=== PATIENT | male | born 1945 | race Caucasian/White ===

== ENCOUNTER → 2019-09-23 11:19 | Outpatient (CLI) | payer MEDICARE, BC, SELFPAY ==
--- NOTE | 2019-09-23 | DI.MRI.S_ITS ---
PROCEDURE: MR LUMBAR SPINE WO CON INDICATIONS: Other symptoms and signs involving the musculoskel TECHNIQUE: Noncontrast sagittal T1 spin echo and T2 fast echo, sagittal STIR, axial T1 and T2 fast spin echo through the lumbar spine. In cases with scoliosis, additional coronal T2 fast spin echo may be performed. COMPARISON: CT, L-SPINE WITHOUT CONTRAST, 10/14/2008, 10:10. [facility], MR, L-SPINE WITHOUT CONTRAST, 04/03/2012, 10:31. FINDINGS: Image quality: Excellent. Alignment and Curvature: There is trace retrolisthesis of L1 on L2, L2 on L3 as well as trace anterolisthesis of L5 on S1. Bone Marrow: Marrow is of normal overall signal. Minimal reactive endplate changes are present at L1-L2, L2-3, L3-4, L4-5 and L5-S1. No acute vertebral body compression fractures. Spinal Cord: Conus medullaris terminates at the L1 level. Visualized cord demonstrates normal signal and size. Paraspinous Soft Tissues: No paravertebral masses. Discs: Mild/moderate multilevel disc desiccation is present most notable at L1-L2 and L5-S1. There is mild increased signal within the disc at L1-L2 and to a lesser degree L5-S1. L1-L2: Mild disc lobes with mild spinal stenosis. Severe right and moderate to severe left foraminal narrowing with facet and ligamentum flavum hypertrophy. No appreciable interval progression. L2-L3: Mild disc bulge, including left foraminal protrusion with mild spinal stenosis. Minimal left foraminal narrowing with facet and ligamentum flavum hypertrophy. Minimal epidural lipomatosis. Minimal interval progression. L3-L4: Mild disc bulge with mild spinal stenosis. Mild bilateral foraminal narrowing, slightly progressive on the left with facet and ligamentum flavum hypertrophy. L4-L5: Mild disc bulge including asymmetric left component with mild right lateral recess compromise. There is severe right and moderate left foraminal narrowing progressive on the right compared to prior exam. Facet and ligamentum flavum hypertrophy are present. L5-S1: Mild disc bulge with superimposed left posterior central protrusion, unchanged. There is severe left and moderate to severe right foraminal narrowing, somewhat progressive on the left compared to prior exam. Facet hypertrophy is present. Pars defect is present. IMPRESSION: 1. Multilevel degenerative changes there is interval progression as above. 2. Grade one anterolisthesis of L5 on S1 with pars defect. 3. Multilevel foraminal narrowing most severe at L1-2, L4-5 and L5-S1 secondary to facet arthropathy. 4. Multilevel spinal stenosis overall mild secondary to disc bulges. Dictated by: Kinjal Dawkins M.D. on 09/23/2019 at 15:13 Approved by: Kinjal Dawkins M.D. on 09/23/2019 at 15:31
== END ==
PROVIDERS: Family Provider Family Medicine Geriatric Medicine; PCP Family Medicine Geriatric Medicine; Referring Provider Family Medicine Geriatric Medicine; Visit Provider Psychiatry & Neurology Neurology
DX: R29.898 Other symptoms and signs involving the musculoskeletal system (principal); M47.816 Spondylosis without myelopathy or radiculopathy, lumbar region; M47.817 Spondylosis without myelopathy or radiculopathy, lumbosacral region; M43.17 Spondylolisthesis, lumbosacral region; M48.061 Spinal stenosis, lumbar region without neurogenic claudication; M48.07 Spinal stenosis, lumbosacral region; M51.26 Other intervertebral disc displacement, lumbar region; M51.27 Other intervertebral disc displacement, lumbosacral region
CPT/HCPCS: 72148

== ENCOUNTER → 2020-07-30 09:10 | Outpatient (CLI) | payer MEDICARE, BC, SELFPAY ==
[2020-07-30 11:10] LABS: COVID19 -Nasal RAPID Negative (Negative)
== END ==
PROVIDERS: Family Provider Family Medicine Geriatric Medicine; PCP Family Medicine Geriatric Medicine; Visit Provider Nurse Practitioner
DX: Z11.59 Encounter for screening for other viral diseases (principal)
CPT/HCPCS: 87635

== ENCOUNTER 2020-08-01 10:32 | Inpatient (IN) | payer MEDICARE, BC, SELFPAY ==
[2020-07-25 08:39] VITALS: BMI 27.2
[2020-08-01] VITALS (12 sets, daily range): BP systolic 100–166; BP diastolic 55–106; PULSE 57–87; RESP 12–18; TEMP 35.4–36.5; O2SAT 92–98; BMI 26.3
--- NOTE | 2020-08-01 | DI.RAD.S_ITS ---
PROCEDURE: XR PELVIS 1-2V INDICATIONS: POST OPERATIVE LEFT HIP TECHNIQUE: Single view(s) of the pelvis acquired. COMPARISON: [facility], CR, XR PELVIS WITH LATERAL HIP LEFT, 06/17/2020, 10:11. [facility], CR, XR HIP W PEL IF DONE LT 2V, 08/01/2020, 15:21. FINDINGS: Bones: No fracture. Left hip arthroplasty in expected postoperative alignment. Mild to moderate right hip joint degeneration. Severe degenerative sclerosis and spurring at the pubis symphysis. Soft tissues: Scattered vascular calcifications. IMPRESSION: Linear lucencies at the lesser trochanter suspicious for the possibility of nondisplaced periprosthetic fracture. Recommend follow-up radiographs in 10 days to assess for confirmatory healing sclerosis. Findings and recommendations were personally telephoned and discussed with Dr. Lizama covering for Dr. Ramirez at 1710 hours on 08/01/20. Elsewhere, expected postoperative alignment of left hip arthroplasty. Dictated by: Titus Espinal M.D. on 08/01/2020 at 17:00 Approved by: Titus Espinal M.D. on 08/01/2020 at 17:20
--- NOTE | 2020-08-01 06:00 | DI.RAD.S_ITS ---
PROCEDURE: XR HIP W PEL IF DONE LT 2V INDICATIONS: ANTERIOR LEFT HIP TECHNIQUE: 2 view(s) of the hip acquired. COMPARISON: [facility] [place], CR, XR PELVIS WITH LATERAL HIP LEFT, 06/17/2020, 10:11. FINDINGS: Bones: Patient is status post left hip arthroplasty, with hardware components in expected positions. The hip joint appears congruent. The visualized bony structures appear intact. Soft tissues: Overlying postoperative changes are noted. No suspicious soft tissue densities. IMPRESSION: Expected immediate postoperative appearance of left hip arthroplasty. Dictated by: Dieter Mg [facility] Interpreted: Ana Daigle MD on 08/01/2020 at 16:18 Approved by: Ana Daigle M.D. on 08/01/2020 at 17:10
[2020-08-01] MEDS: CELECOXIB 200 MG CAPSULE PO (12:28)
[2020-08-01] MEDS: PREGABALIN 75 MG CAPSULE PO (12:28)
[2020-08-01] MEDS: ACETAMINOPHEN 325 MG TABLET 975 MG PO (12:28)
--- NOTE | 2020-08-01 13:40 | PM.PREOP ---
Pre-operative Note COVID-19 COVID-19 status: Negative Result date/Date tested (Pos, Neg/Pending): 07/30/20 Interval Note History & Physical reviewed/Exam performed by Physician: Yes Changes to H&P: No H&P completed within 30 days and has changed as indicated here:: Plan for Left anterior PATY
[2020-08-01] MEDS: CEFAZOLIN 2 GM/100 ML FROZ.PIGGY IV ×2 (14:18→20:25)
--- NOTE | 2020-08-01 14:53 | SUR.OPER ---
Supine on padded [place] table with bilateral legs secured in padded positioning boots and suspended in positioning spars, operative leg in traction per surgeon. Head on one pillow. Arm on non-operative side secured on padded armboard <90 degrees abduction. Arm on operative side padded and resting across chest then secured with tape over sheet. Padded perineal post in place per surgeon.
[2020-08-01] MEDS: ROPIVACAINE 0.5% PF 5 MG/ML 20ML VIAL 60 ML INJ (14:56)
[2020-08-01] MEDS: KETOROLAC 30 MG/ML VIAL IV (14:57)
[2020-08-01] MEDS: MORPHINE 4 MG/ML INJ INJ (14:58)
[2020-08-01] MEDS: TRANEXAMIC ACID 1,000 MG VIAL 2000 MG INJ ×2 (14:59→15:43)
--- NOTE | 2020-08-01 16:03 | P.OP_ITS ---
Operative Date/Time/Diagnoses Date of procedure: 08/01/20 Time of procedure: 16:03 Pre-op diagnosis: left hip OA Post-op diagnosis: same Procedure & Clinicians Procedure: left anterior PATY Same procedure as scheduled: Yes Indications: left hip OA resistant to further conservative care Surgeon: Manjinder Ramirez Life Support Technician: Renate Antunez Anesthesia Type: General and Spinal Operative Notes Findings: Left hip osteoarthritis with [id number] articulation at the weight- bearing surface. Closure Type: primary Prosthetic devices, grafts, tissues, transplants, or devices: Mendoza [employer] Nephew R3 56 mm 2x 25 mm screw 56 mm x 36 mm neutral offset liner Nine high offset anthology stem 36+ 0 Biolox Delta ceramic head Estimated Blood Loss (mL): 100 Procedure in detail: Patient was met in the preoperative holding area where the site of surgery was marked by . Informed consent had been reviewed and signed in clinic however was also reviewed the preoperative holding area all last minute questions were answered. Patient was then brought back in the operating room he really see the spinal anesthetic was then placed supine on the [place] table bed. Bilateral feet were placed in [place] table boots after being well padded. He was induced under general anesthesia. The left hip was then prepped and draped in normal sterile fashion. A surgical time-out was performed verifying the site and side surgery well as the name of the patient. A 6 cm long incision based 2 cm distal and 2 cm lateral to the ASIS aiming towards the fibular head was made in the skin with a 10. Blade. Electrocautery was used to dissect down to the level of the tensor fascia. The tensor fascia was then split using new 10. Blade. An Allis clamp was placed on the medial leaflet of the tensor fascia and the tensor muscle itself was retracted laterally a Cobra was then placed over the superior neck of the femur. A Meyerding retractor was then placed on the lateral aspect of the rectus femoris and retract the muscle medially this gave us good exposure to the ascending branches of the femoral circumflex vessels which were coagulated using electrocautery. A 2nd Cobra retractor was then placed over the inferior neck of the femur and a bent Hohmann was placed over the anterior superior lip of the acetabulum giving good exposure to the capsule. Inverted T-shaped capsulotomy was then performed in the superior and inferior leaflets were then tagged with FiberWire suture. The was then released from the femoral neck and the Cobra retractor was then placed intracapsular this gave us good exposure of the femoral neck a reciprocating saw was then used to make a femoral neck cut height was based off our preoperative template films. The corkscrew was then used to remove the femoral head. At this point retractors were removed and soft tissues protector sleeve was placed retractors were then replaced to give us exposure to the acetabulum. Electrocautery was used to remove the pulp in our the Tangirnaq blade was used to remove the labrum. We began reaming with a size 48 Reamer and medialized to the base of the fossa. Fluoroscopy was then brought in and matched our standing AP pelvis films we then reamed the final several reamers underneath fluoroscopic guidance up to a size 52 which began to have good bite. We then reamed 1 more time with the 53 mm Reamer and selected a 3 hole 54 mm R3 cup. This was then impacted into place underneath fluoroscopic guidance and 2x 25 mm screws were then placed. A 54 mm x 36 mm neutral offset polyethylene liner was then placed and malleted flush with the rim of the cup. I then verify the all tabs were well seated in the acetabular cup. I then turned my attention to the femoral side. Femoral elevator hook was placed under the posterior aspect of the femur the leg was then externally rotated to 120? of external rotation the leg was extended to the floor and adducted. A Maldonado retractor was placed over the medial calcar and a bent Hohmann was placed over the superior aspect of the superior leaflet of the capsulotomy the capsule was then released off the inside shoulder of the greater trochanter the bent Hohmann was were removed and a large retractor was then placed over the greater trochanter. We had adequate exposure without needing to do any release of the short external rotators. A canal finer was then used followed by chili pepper broach followed by size 1 broach in up sizing by 1 until a size 9 broach was well seated. I then calcar planed off the size 9 broach we then trialed with a high offset 36+ 0. The hip was reduced hip was stable to maximal external rotation as well as external rotation to 90? and extension to the floor. Fluoroscopy was brought in to verify leg lengths and canal fill of the femoral stem. Leg lengths were equal and canal fill was appropriate with appropriate alignment of the stem. We then dislocated the hip removed the trial components and placed a size 9 high offset anthology femoral stem and a 36+ 0 Biolox head. This was then malleted onto the Lombardo taper. Hip was then reduced a final time. Local anesthetic was injected into the periarticular soft tissues including capsulotomy. The wound then had Betadine solution placed into it while final x-rays were taken. The Betadine solution was then irrigated away with copious normal saline the capsulotomy was then repaired using a running Ethibond suture followed by repair of the tensor fascia with a running locking 1. Vicryl followed by interrupted 2-0 Vicryl in the subcutaneous layer followed by 3-0 Stratafix in the subcuticular followed by Dermabond and Aquacel dressing. Complications: none Post-operative Condition: stable Disposition: PACU Plan for aftercare: 24 hours post-op abx, ASA 81mg BID (baseline dose for patient), WBAT LLE
[2020-08-01] MEDS: SODIUM CHLORIDE IRRIG SOLUTION 250 ML, POVIDONE-IODINE SPONGE STICKS 1 APPLIC IRR (16:11)
[2020-08-01] MEDS: OXYCODONE/ACETAMINOPHEN 5/325 TABLET 1 TAB PO (16:45)
[2020-08-01] MEDS: LACTATED RINGERS 1,000 ML 125 ML IV (18:12)
[2020-08-01 19:59] LABS: Add Manual Diff / Slide Review NO; Basophils Absolute Auto 0 /uL (0-100); Basophils Percent Auto 0.2 % (0-2); Eosinophils Absolute Auto 0 /uL (0-450); Eosinophils Percent Auto 0.2 % (2-4); Hematocrit 41.7 % (41-53); Hemoglobin 14.2 g/dL (13.5-17.5); Lymphocytes Absolute Auto 500 /uL (1100-4500); Lymphocytes Percent Auto 3.8 % (25-40); Mean Corpuscular HGB Conc 34.1 % (30-36); Mean Corpuscular Hemoglobin 32.5 PG (26-34); Mean Corpuscular Volume 95.2 fL (80-100); Monocytes Absolute Auto 300 /uL (0-900); Monocytes Percent Auto 2.2 % (3-14); Neutrophils Absolute Auto 12500 /uL (1500-7000); Neutrophils Percent Auto 93.6 % (50-75); Platelet Count 135 X10^3/uL (150-400); Red Blood Cell Count 4.38 X10^6/uL (4.5-5.9); Red Cell Distribution Width 13.4 % (11.6-14.8); White Blood Cell Count 13.3 X10^3/uL (4.5-11.0)
[2020-08-01] MEDS: ACETAMINOPHEN 325 MG TABLET 650 MG PO (20:25)
[2020-08-01] MEDS: ASPIRIN EC 81 MG TABLET PO (20:26)
[2020-08-01] MEDS: DOCUSATE 100 MG CAPSULE PO (20:26)
[2020-08-02] VITALS (7 sets, daily range): BP systolic 105–137; BP diastolic 63–87; PULSE 68–79; RESP 14–18; TEMP 36.1–37.1; O2SAT 94–100
--- NOTE | 2020-08-02 | DI.RAD.S_ITS ---
PROCEDURE: XR HIP W PEL IF DONE LT 2V INDICATIONS: post op fracture TECHNIQUE: AP pelvis with lateral view(s) of the left hip(s). COMPARISON: [facility], CR, XR PELVIS 1-2V, 08/01/2020, 16:33. [facility], CR, XR HIP W PEL IF DONE LT 2V, 08/01/2020, 15:21. FINDINGS: Bones: The previously described linear lucencies involving the lesser trochanter are not seen on additional views therefore probably projectional artifact on the prior study. Soft tissues: The visualized bowel gas pattern is normal. No suspicious soft tissue calcifications. IMPRESSION: No definite fracture in the region of the lesser trochanter as described above Dictated by: Titus Espinal M.D. on 08/02/2020 at 9:35 Approved by: Titus Espinal M.D. on 08/02/2020 at 9:37
--- NOTE | 2020-08-02 00:25 | PC.NURSE ---
Addendum entered by Darlene Sullivan R.N. 08/02/20 02:25: 0225 Pt unsuccessful in voiding without assistance. Straight-catheterization evacuated 820cc of urine. Pt tolerated procedure well. Addendum entered by Darlene Sullivan R.N. 08/02/20 01:30: 0130 Pt has not yet voided post surgically. He states he hasn't felt any sensations of needing to void. Bladder scan shows 943mL of urine within bladder. I have encouraged the patient to try voiding into the urinal, gently pressing on his bladder and intermittently coughing to try to relax the sphincter. If he is unsuccessful, I will use a straight-catheter. Note: Pt has h/o neuropathy. Original Note: 2310 Received safe patient hand-off. The patient is sitting up in bed, alert and oriented x4. He is on room air. He has a right AC PIV with LR infusing at 125mL/h. The bed alarm is on. No s/sx of distress. The patient appears slightly anxious and unsure of what tomorrow will bring as far as physical therapy and possibly needing another surgery. He stated the doctor told him he may have seen an additional fracture and was going to order another xray to be done; this has made the patient further anxious about getting out of bed. For now, he is using the urinal and will wait until doctor's orders and physical therapy visit tomorrow. He denies pain; neurovasculature is intact and strength is both legs is good.
[2020-08-02] MEDS: CEFAZOLIN 2 GM/100 ML FROZ.PIGGY IV (05:05)
--- NOTE | 2020-08-02 07:49 | P.PN_ITS ---
Subjective Subjective Date Patient Seen: 08/02/20 Time Patient Seen: 07:50 Interval history: Patient is POD#1 s/p anterior PATY with Dr. Ramirez. Pain has been controlled. He has not mobilized yet. Has been unable to void, was straight catheterized with 900cc output. No complaints. No chest pain or shortness of breath. Exam Vital Signs (past 8 hours): - 08/02/20 03:51 Temperature 97.0 F L Pulse Rate 68 Respiratory Rate 18 Blood Pressure 130/86 Pulse Oximetry 96 Oxygen Delivery Method Room Air Oxygen Flow Rate 0 Narrative Exam Narrative: 75 year old male resting in bed, alert and oriented in no acute distress. Aquacel dressing over left hip is CDI. Patient able to perform straight leg raise. Calves are soft, nontender. Palpable pedal pulse. Objective Labs Result Diagrams: 08/02/20 05:20 Labs: Laboratory Results - last 24 hr 08/01/20 08/02/20 19:48 05:20 WBC 13.3 H RBC 4.38 L Hgb 14.2 13.0 L Hct 41.7 38.0 L MCV 95.2 MCH 32.5 MCHC 34.1 RDW 13.4 Plt Count 135 L Neut % (Auto) 93.6 H Lymph % (Auto) 3.8 L [place] % (Auto) 2.2 L Eos % (Auto) 0.2 L Baso % (Auto) 0.2 Neut # (Auto) 91021 H Lymph # (Auto) 500 L [place] # (Auto) 300 Eos # (Auto) 0 Baso # (Auto) 0 PFSH Medical History Asthma Borderline diabetes Depression Glaucoma HLD (hyperlipidemia) HTN (hypertension) Hx of angiography (~2002) Impaired hearing Peripheral neuropathy Skin cancer Surgical History History of arthroplasty of right knee (01/23/11) History of arthroscopy of both knees History of colonoscopy History of surgery History of surgery History of surgery Hx of bilateral cataract extraction Hx of hemorrhoidectomy S/P CABG x 4 (~2002) Social History household members: children Smoking Status: Former smoker alcohol intake: current Assessment & Plan Assessment & Plan narrative: -Patient is POD#1 s/p anterior PATY. Postoperative films reviewed by Dr. Ramirez are suspicious for periprosthetic fracture. Will repeat xray today to further evaluate this. Patient will be TTWB on the left pending xray. May return to the OR later today for revision dependent on what new films show. NPO after breakfast. May still work with PT. -Postoperative urinary retention. Will continue protocol including bladder scans and straight catheterization if needed. Flomax added. Quality VTE Deep Vein Thrombosis/Pulmonary Embolism Present on Admission: No
[2020-08-02] MEDS: TAMSULOSIN 0.4 MG CAPSULE PO (08:32)
[2020-08-02] MEDS: LOSARTAN 50 MG TABLET PO (08:32)
[2020-08-02] MEDS: DOCUSATE 100 MG CAPSULE PO ×2 (08:33→19:28)
[2020-08-02] MEDS: LACTATED RINGERS 1,000 ML 125 ML IV (08:37)
--- NOTE | 2020-08-02 09:50 | DI.CT.S_ITS ---
PROCEDURE: CT PEL WO CON INDICATIONS: questionable periprosthetic hip fracture TECHNIQUE: Noncontrast 3 mm axial sections acquired through the bony pelvis, with coronal and sagittal reformatting. COMPARISON: [facility], CR, XR PELVIS 1-2V, 08/01/2020, 16:33. [facility], CR, XR HIP W PEL IF DONE LT 2V, 08/02/2020, 9:18. FINDINGS: Image quality: Excellent. Bones: Patient is status post left total hip arthroplasty. Alignment of left hip prosthesis is anatomic. No evidence of hardware loosening or failure. There is no fracture or dislocation seen in bony pelvis and bilateral hips. Specifically no fracture in the region of lesser trochanter is seen. No suspicious intraosseous lesion. Moderate right hip joint osteoarthritic changes are noted. No evidence of avascular necrosis of femoral head. Osteoarthritic changes also seen in bilateral sacroiliac joints and symphysis pubis. Soft tissues: Post surgical changes are noted in left analy pelvic soft tissue with subcutaneous emphysema and air deep in the anterior and posterior upper thigh muscle groups. No discrete drainable fluid collection is seen. Vascular calcifications are noted in bilateral upper thigh. There is no pelvic free fluid or free air. No abnormal bowel wall thickening. IMPRESSION: 1. Post left total hip arthroplasty changes with anatomic left hip alignment. No hardware loosening or failure. No acute left hip fracture or dislocation. Previously noted radiolucency projecting in the region of lesser trochanter likely represent summation artifact from nutrient vessel in this region and overlying subcutaneous emphysema. 2. Osteoarthritic changes throughout bony pelvis. No evidence of avascular necrosis of right femoral head. Dictated by: Prem Davison M.D. on 08/02/2020 at 11:00 Approved by: Prem Davison M.D. on 08/02/2020 at 11:07
--- NOTE | 2020-08-02 11:35 | PT.IIE ---
Addendum entered and electronically signed by Kathryn Pham PT 08/02/20 13:23: X-ray and CT are negative for fracture which is confirmed after initial evaluation. Pt is now cleared for WBAT LLE. Original Note: Current Diagnoses Unilateral primary osteoarthritis, left hip (08/01/20) Surgery Performed Operation Date: 08/01/20 14:00 Actual Procedures p Total Hip Arthroplasty/Anterior Approach(Left) - Manjinder Ramirez MD Surgical History (Last Reviewed 08/02/20 @ 07:52 by Renate Antunez PA-C) History of arthroplasty of right knee (01/23/11) History of arthroscopy of both knees History of colonoscopy History of surgery History of surgery History of surgery Hx of bilateral cataract extraction Hx of hemorrhoidectomy S/P CABG x 4 (~2002) Medical History (Last Reviewed 08/02/20 @ 07:52 by Renate Antunez PA-C) Asthma Borderline diabetes Depression Glaucoma HLD (hyperlipidemia) HTN (hypertension) Hx of angiography (~2002) Impaired hearing Peripheral neuropathy Skin cancer Physical Therapy Inpatient Evaluation/Re-Eval M1 PT/OT-IP Prior Functional Status Start: 08/02/20 08:40 Freq: NEEDED Status: Active Protocol: Document 08/02/20 11:30 AW (Rec: 08/02/20 12:19 AW [id number]) Medical Review Prior Functional Status Medical History Reviewed Yes Communication WNL. Pt is an effective verbal communicator. Mobility and Gait Pt is an independent ambulator without assistive device. Before surgery, he could walk a mile but with increased pain afterward. He has bilateral knee pain which was increased following a R Achilles injury in October of this year. Pt is a high fall risk and reports multiple falls in the past one year. Activities of Daily Living and IADL's Independent with all I/ADL's. 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 Prior Functional Level (Other details) Pt has peripheral neuropathy in all extremities which affects strength and sensation . Sensation is more disturbed on the right than the left LE. Social History Household Members children Living Arrangements House Number of Floors (Floors) Two Floors Number of Stairs To Enter/Railing? 3 VIET with wide bilateral rails Home Environment Standard Height Toilet,Walk in Shower Home Equipment Front Wheel Walker,Straight Cane,Crutches,Shower Seat without Backrest,Long Handled Sponge,Long Handled Shoe Horn, Process Laboratory Specialist,Sock Aid Employment Status Retired Additional Social History Comment Pt lives on [address] with his 40 yo son. His son has Asperger's but is able and available to assist without physical limitation. Pt has a friend on [address] who will also be available to assist and will come to pick him up at discharge. M2 PT-IP Current Condition Start: 08/02/20 08:40 Freq: NEEDED Status: Active Protocol: Document 08/02/20 11:30 DE (Rec: 08/02/20 13:20 DE [id number]) Physical Therapy Current Condition Current Condition Evaluation Date 08/02/20 Treatment Diagnosis L PAYT anterior; Difficulty in walking Onset Date 08/01/20 Precautions Anterior Hip Precautions No Hip Extension,No Hip External Rotation Weight Bearing Status Weight Bearing Status Touch Down Weight Bearing M3 PT-IP Subjective Start: 08/02/20 08:40 Freq: NEEDED Status: Active Protocol: Document 08/02/20 11:30 DE (Rec: 08/02/20 13:20 DE [id number]) Subjective Physical Therapy Visit Type Type Initial Evaluation Visit Start Time 11:02 Visit Stop Time 11:25 Total Visit Minutes 23 Notes SPT Arnoldo led session under direct supervision of PT Kathryn. Number of PROSPECTING DRILLER HELPER Visits 0 Physical Therapy Visit Comments Patient Comments Pt is agreeable to do PT. M4 PT-IP Mobility and Gait Start: 08/02/20 08:40 Freq: NEEDED Status: Active Protocol: Document 08/02/20 11:30 DE (Rec: 08/02/20 13:20 DE [id number]) PT-Bed Mobility Assessment Supine to Sit Supine to Sit Standby Assistance PT-Transfer Assessment Sit to and From Stand Sit to and from Stand Contact Guard Assistance,Use of Upper Extremities Equipment Transfer Assistive Device Gait Belt,Front Wheeled Walker Orthotic/Prosthetic Devices or Brace: No Transfers Transfer Destination Chair Transfer Technique Amb with FWW Transfer Ability Level of Assist Contact Guard Assistance,Use of Upper Extremities Comments Mobility Comments Pt was inclined in bed upon arrival. Pt completed supine to sit at R EOB from flat bed with SBA. Reviewed LLE TTWB precaution and pt demonstrated understanding. Pt performed sit to stand with FWW CGA. Pt denied any dizziness or lightheadness. Pt amb ~2 ft forward and pivoted to sit down in the chair that was on the R side with FWW CGA. Pt was able to maintain LLE TTWB throughout the mobilization. Pt reclined comfortably in the chair. Call light placed within reach. Gait Assessment Gait Gait Assistance Required: Contact Guard Assist Distance (Feet) 2 Able to Maintain Weight Bearing Status Yes During Gait Assistive Devices Assistive Device Gait Belt,Front Wheeled Walker Orthotic/Prosthetic Devices or Brace: No Gait Deviations General Gait Pattern Decreased Stride Length, Decreased Feet Clearance, Flexed Trunk,Step-to Gait Factors Limiting Gait Function Factors Limiting Gait Function Decreased Activity Tolerance, Decreased Sensation,Decreased Strength,Limited Range of Motion,Poor Balance Comments Gait Comments See mobility comments. Stair Climbing Assessment Comments Stair Climbing Comments Not assessed. PT-Balance Assessment Sitting Balance and Reactions Static Sitting Balance Ability Normal Dynamic Sitting Balance Ability Normal Standing Balance and Reactions Static Standing Balance Ability Good Dynamic Standing Balance Ability Good M5 PT-IP Objective Assessments Start: 08/02/20 08:40 Freq: NEEDED Status: Active Protocol: Document 08/02/20 11:30 DE (Rec: 08/02/20 13:20 DE [id number]) Orientation Orientation/Cognition Level of Alertness Alert Orientation Name,Age,Birthday,Month,Date, Year,Day of Week,Place, Situation Language Function Ability No Deficits Noted Safety Awareness Understands Safety Issues Memory Description No Deficits Noted Gross Range of Motion Lower Extremity ROM Assessment Left Impaired Strength Lower Extremity Strength Assessment Left Impaired Coordination Assessment Gross Coordination Gross Coordination WNL Sensation Assessment Sensation Gross Sensation Right LE Impaired,Left LE Impaired Light Touch Impaired Sensation Description Numbness Comments Sensation Comments Pt has peripheral neuropathy affecting BLE (R>L) Muscle Tone Muscle Tone WNL Yes M6 PT-IP Treatment Start: 08/02/20 08:40 Freq: NEEDED Status: Active Protocol: Document 08/02/20 11:30 DE (Rec: 08/02/20 13:20 DE [id number]) Physical Therapy Treatment Education Education Provided Weight Bearing Status,Post-Op Packet,Safety Other Treatments Other Treatment Performed Provided education on WB status, safety, and role of PT . M7 PT-IP Assessment and Plan Start: 08/02/20 08:40 Freq: NEEDED Status: Active Protocol: Document 08/02/20 11:30 DE (Rec: 08/02/20 13:20 DE [id number]) PT Summary Assessment and Plan Potential Rehabilitation Potential Excellent Status of Condition at Evaluation Evolving Summary Impairments Pain,ROM,Strength,Balance,Bed Mobility,Transfers,Gait, Activity Tolerance Assessment Summary Isac is a 75 yo female POD1 s /p L PATY with hx of multiple B knee arthroscopies, L TKA, and peripheral neuropathy in BLE. At baseline, pt is IND for all mobility and amb without AD. Pt is able to amb ~1 mile with increased pain after. Pt is IND for all I/ ADLs at baseline. On evaluation, pt requires CGA- SBA for supine to sit, sit <> stand, and amb. Pt has TTWB status d/t possible fracture around prosthetics, currently waiting for the x-ray and CT results. PT will continue to assess progress and refine d/c recommendation depending on the imaging results and WB status. Pt will need to perform 3 steps up and down with unilateral railing before d/c. PT anticipates pt will be safe to d/c home with assistance if imaging is negative and WB status is WBAT . Pt will also benefit from outpatient PT to improve hip ROM and strength. Goals Bed Mobility Goal Independent Transfer Goal Independent,Front Wheeled Walker Gait Goal Independent,Front Wheel Walker Gait Distance 200 Other Goals Pt will perform 3 steps up and down with unilateral railing SBA. Days to Meet Goals 3 Frequency of Treatment Frequency Of Treatment Twice a Day Treatment Plan Physical Therapy Treatment Plan Bed Mobility Training,Transfer Training,Gait Training, Therapeutic Exercise,Balance Retraining,Post Op Education, Discharge Planning,Hot or Cold Pack,Neuromuscular Re-ed Recommendations To Nursing Amount of Assist Needed 1 Person Assist Discharge Recommendations PT Discharge Recommendations Home with Assistance, Outpatient PT Transportation Needs at Discharge Private Vehicle Treatment was provided by Arnoldo Mayer, DENI and supervised by Kathryn Pham, PT. I personally reviewed this note and agree with its contents.
--- NOTE | 2020-08-02 12:08 | CM.DANOTE ---
DCP: Case received, EMR reviewed and met with patient. Introduced self and role. Was able to obtain information from patient regarding his baseline activity status and living situation prior to hospitalization. DCP assessment completed with information currently available. Patient is a 64 year old male who admitted yesterday morning to the care of the surgical team. PCP: Dr. Thorne. Payer: confirmed: [employer]. Patient came to the hospital via private vehicle for a surgical procedure. He had right total hip arthroplasty. Patien has had isory of osteoartritis, and chronic hip pain. Met with patient in his room. He is pleasant, alert and oriented., He resides on [address]. He is independent at baseline, although he stated that he only drives for short distances, due to [place] vision[place]. He resides in [place] with his son, who has Ashburger's. He stated, he son can assist him at home, as long as he is in his routine. He [place] P: DCP to continue to follow. Patient will be working with P.T. He should be able to go home when he is medically stable. Galina Dyer RN/Performance Test Consultant
--- NOTE | 2020-08-02 12:12 | PC.NURSE ---
Addendum entered by Cari Fuentes R.N. 08/02/20 14:32: PATIENT VOIDED 400CC'S W/ PVR 450 CC'S, WAITED 1/2 HR THEN PATIENT VOIDED 650 CC'S. Original Note: SHIFT NOTE: PATIENT NPO AFTER BREAKFAST, CONCERN FOR POSS. FX PER POST-OP XRAY PATIENT HAD REPEAT XRAY THIS AM FOLLOWED BY CT SCAN TO CONFIRM ABSENCE OF FX. BOTH NEGATIVE. PATIENT CONTINUES WITH URINARY RETENTION, BLADDER SCAN THIS AM >500 CC'S. STOOD PATIENT AT BEDSIDE W/ TTWB TO LLE, UNABLE TO VOID, DENIES SENSATION TO VOID. ASSISTED BACK TO BED. STRAIGHT CATH FOR 825 CC'S OF CLEAR YELLOW URINE. MC ESCAMILLA ADDED FLOMAX WHICH WAS GIVEN THIS AM. IF RETENTION CONTINUES MAY PLACE DEJESUS OVERNIGHT AND DC AT 0600 TOMORROW MORNING.(PER ORTHO PA) REGULAR DIET RESUMED FOR LUNCH, PATIENT IS NOW WT BEAR TOLERATED TO LLE. PATIENT HAS DENIED PAIN TO LLE STATING HE STILL HAS NUMBNESS, BUT HAS CHRONIC NEUROPATHY AT BASELINE TO ALL 4 EXTREMITIES. OTHERWISE CMS INTACT, CAN FEEL PRESSURE. BL FEET COOL W/ FAINT PALPABLE PEDAL PULSES AND SOCKS APPLIED. CAP REFILL >2 SECONDS. EQUAL STRENGTH, STRONG DORSI FLEX AND PLANTAR FLEX CAN LIFT LEGS OFF OF BED. NOW SITTING IN RECLINER AFTER ASSIST FROM PHYSICAL THERAPY FOR LUNCH.
--- NOTE | 2020-08-02 14:46 | PT.IPTN ---
Current Diagnoses Unilateral primary osteoarthritis, left hip (08/01/20) Surgery Performed Operation Date: 08/01/20 14:00 Actual Procedures p Total Hip Arthroplasty/Anterior Approach(Left) - Manjinder Ramirez MD Physical Therapy Treatment Note M2 PT-IP Current Condition Start: 08/02/20 08:40 Freq: NEEDED Status: Active Protocol: Document 08/02/20 11:30 DE (Rec: 08/02/20 13:20 DE [id number]) Physical Therapy Current Condition Current Condition Evaluation Date 08/02/20 Treatment Diagnosis L PATY anterior; Difficulty in walking Onset Date 08/01/20 Precautions Anterior Hip Precautions No Hip Extension,No Hip External Rotation Weight Bearing Status Weight Bearing Status Touch Down Weight Bearing M3 PT-IP Subjective Start: 08/02/20 08:40 Freq: NEEDED Status: Active Protocol: Document 08/02/20 14:09 CLB (Rec: 08/02/20 15:57 CLB [id number]) Subjective Physical Therapy Visit Type Type Treatment Note Visit Start Time 14:09 Visit Stop Time 14:46 Total Visit Minutes 37 Number of DIRECTOR ADULT Visits 1 Physical Therapy Visit Comments Patient Comments Pt is agreeable to do PT. M4 PT-IP Mobility and Gait Start: 08/02/20 08:40 Freq: NEEDED Status: Active Protocol: Document 08/02/20 14:09 CLB (Rec: 08/02/20 15:57 CLB [id number]) PT-Bed Mobility Assessment Supine to Sit Supine to Sit Standby Assistance Sit to Supine Sit to Supine Standby Assistance PT-Transfer Assessment Sit to and From Stand Sit to and from Stand Standby Assistance,Use of Upper Extremities Equipment Transfer Assistive Device Gait Belt,Front Wheeled Walker Orthotic/Prosthetic Devices or Brace: No Transfers Transfer Destination Bed Transfer Technique Amb with FWW Transfer Ability Level of Assist Standby Assistance,Use of Upper Extremities Comments Mobility Comments Pt performed HS, QS,GS and AP in bed. Educated pt on Anterior hip precautions and WB status. Pt required SBA for [id number] with GB and FWW. Pt ambulated to therapy stairs and after education for proper sequencing pt climbed three steps with right rail SBA. Pt ambulated back to room requiring SBA for stand-sit- supine. Left pt in bed with alarm on, call light and all other needs within reach. Informed AIRPORT CONTROL OPERATOR of pt progress with mobility. Gait Assessment Gait Gait Assistance Required: Standby Assistance Distance (Feet) 120 Able to Maintain Weight Bearing Status Yes During Gait Assistive Devices Assistive Device Gait Belt,Front Wheeled Walker Orthotic/Prosthetic Devices or Brace: No Gait Deviations General Gait Pattern Decreased Stride Length, Decreased Feet Clearance, Flexed Trunk,Step-to Gait Factors Limiting Gait Function Factors Limiting Gait Function Decreased Activity Tolerance, Decreased Sensation,Decreased Strength,Limited Range of Motion,Poor Balance Comments Gait Comments Pt uses small step through gait and at time brings knee up as if marching. Pt able to bear weight w/o increase in pain but reported a warming sensation of left upper thigh. Stair Climbing Assessment Evaluation Level of Assist On Stairs Standby Assistance Devices Stair Climbing Assistive Devices Right Railing Technique/Endurance Stair Climbing Direction Ascend and Descend Stair Climbing Technique Step to Step Number of Steps Climbed 3 Stair Climbing Set # Repetitions (reps) 1 M5 PT-IP Objective Assessments Start: 08/02/20 08:40 Freq: NEEDED Status: Active Protocol: Document 08/02/20 11:30 DE (Rec: 08/02/20 13:20 DE [id number]) Orientation Orientation/Cognition Level of Alertness Alert Orientation Name,Age,Birthday,Month,Date, Year,Day of Week,Place, Situation Language Function Ability No Deficits Noted Safety Awareness Understands Safety Issues Memory Description No Deficits Noted Gross Range of Motion Lower Extremity ROM Assessment Left Impaired Strength Lower Extremity Strength Assessment Left Impaired Coordination Assessment Gross Coordination Gross Coordination WNL Sensation Assessment Sensation Gross Sensation Right LE Impaired,Left LE Impaired Light Touch Impaired Sensation Description Numbness Comments Sensation Comments Pt has periheral neuropathy affecting BLE (R>L) Muscle Tone Muscle Tone WNL Yes M6 PT-IP Treatment Start: 08/02/20 08:40 Freq: NEEDED Status: Active Protocol: Document 08/02/20 14:09 CLB (Rec: 08/02/20 15:57 CLB [id number]) Physical Therapy Treatment Exercises Exercises Ankle Pumps,Gluteal Sets,Quad Sets,Heel Slides Education Education Provided Precautions,Weight Bearing Status,Safety M7 PT-IP Assessment and Plan Start: 08/02/20 08:40 Freq: NEEDED Status: Active Protocol: Document 08/02/20 14:09 CLB (Rec: 08/02/20 15:57 CLB [id number]) PT Summary Assessment and Plan Potential Rehabilitation Potential Excellent Status of Condition at Evaluation Evolving Summary Impairments Pain,ROM,Strength,Balance,Bed Mobility,Transfers,Gait, Activity Tolerance Assessment Summary Pt is able to perform all therapeutic exercises, perform bed mobility and sit<>stand SBA. Pt confused about hip precautions as his OP PT gave him posterior hip precautions to follow. Pt was educated on WB status and anterior hip precautions and pt was able to follow precautions during tx. Pt able to climb three steps with right rail SBA. Pt will have friend who is an EMT pick him up to take him home. His son is home to assist with minor needs. Pt would benefit from further stair training to confirm carry over. Goals Bed Mobility Goal Independent Transfer Goal Independent,Front Wheeled Walker Gait Goal Independent,Front Wheel Walker Gait Distance 200 Other Goals Pt will perform 3 steps up and down with unilateral railing SBA. Days to Meet Goals 3 Frequency of Treatment Frequency Of Treatment Twice a Day Treatment Plan Physical Therapy Treatment Plan Bed Mobility Training,Transfer Training,Gait Training, Therapeutic Exercise,Balance Retraining,Post Op Education, Discharge Planning,Hot or Cold Pack,Neuromuscular Re-ed Other Recommendations and Next Treatment review hip precautions, ther Focus ex, ambulation and stair training. Recommendations To Nursing Amount of Assist Needed 1 Person Assist Discharge Recommendations PT Discharge Recommendations Home with Assistance, Outpatient PT Transportation Needs at Discharge Private Vehicle
[2020-08-02] MEDS: OXYCODONE IR 5 MG TABLET PO ×2 (19:28→23:14)
[2020-08-02] MEDS: ACETAMINOPHEN 325 MG TABLET 650 MG PO (19:28)
[2020-08-02] MEDS: SODIUM CHLORIDE 0.9% FLUSH 10 ML IV (19:29)
[2020-08-02] MEDS: TRAVOPROST OPHTH DROPS 1 DROPS EYE-BOTH (19:31)
[2020-08-02] MEDS: ASPIRIN EC 81 MG TABLET PO (19:45)
[2020-08-03 04:12] VITALS: BP 139/74; PULSE 63; RESP 16; TEMP 35.9; O2SAT 95
[2020-08-03] MEDS: OXYCODONE IR 5 MG TABLET PO ×3 (04:37→13:02)
[2020-08-03 07:00] VITALS: BP 140/81; PULSE 65; RESP 16; TEMP 36.1; O2SAT 96
--- NOTE | 2020-08-03 08:15 | PM.DS.1 ---
History of Present Illness History of Present Illness Date Patient Seen: 08/03/20 Time Patient Seen: 08:15 Chief complaint: OPB Discharge Providers Provider Date of admission: 08/01/20 10:32 Discharge Date: 08/03/20 Primary care physician: Mikey Fonseca MD Consults: 08/01/20 06:00 Consult to Anesthesiology Routine Comment: Consulting Provider: Anesthesiologist Reason for consultation: Regional block for post operative pain control 08/01/20 17:49 Consult to Discharge Planning Routine Comment: Consult to Physical Therapy Evaluate & Treat Comment: Physician Instructions: post op PATY protocol Consult to Respiratory Therapy Evaluate & Treat Comment: Physician Instructions: Evaluate and treat Discharge provider: Kalie Macedo PA-C Summary Hospital Course Discharge Diagnosis: s/p left PATY Acute urinary retention Hospital Course: Peter admitted for a left PATY with Dr. Ramirez. Patient had adequate pain control throughout his stay. There was concern after reviewing x-rays in the recovery room that he had a periprosthetic fracture. New films were obtained the next day which showed no fracture. To rule out fracture CT was obtained and there was no fracture seen on CT either. Patient has been mobilizing well with physical therapy. He initially had difficulty voiding with acute urinary retention postop day 1 but was able to void after starting Flomax. He will continue Flomax for 2 weeks and follow-up with his primary care regarding this. At time of discharge he is eating and voiding without difficulty or assistance. Exam Vital Signs (past 8 hours): - 08/03/20 04:12 08/03/20 07:00 Temperature 96.7 F L 97.0 F L Pulse Rate 63 65 Respiratory Rate 16 16 Blood Pressure 139/74 140/81 Pulse Oximetry 95 96 Oxygen Delivery Method Room Air Oxygen Flow Rate 0 Narrative Exam Narrative: Patient is sitting up in bed no acute distress. He is alert orient x3. Calves soft, compressible, nontender bilaterally. Anterior dressing on left hip is CDI. He is able to actively dorsiflex and plantar flex. Sensation intact to light touch throughout bilateral lower extremities. Dorsalis pedis pulses 2+ and symmetrical. No complaints this morning. Objective Labs Result Diagrams: 08/02/20 05:20 [facility] Medical History Asthma Borderline diabetes Depression Glaucoma HLD (hyperlipidemia) HTN (hypertension) Hx of angiography (~2002) Impaired hearing Peripheral neuropathy Skin cancer Surgical History History of arthroplasty of right knee (01/23/11) History of arthroscopy of both knees History of colonoscopy History of surgery History of surgery History of surgery Hx of bilateral cataract extraction Hx of hemorrhoidectomy S/P CABG x 4 (~2002) Social History household members: children Smoking Status: Former smoker alcohol intake: current Discharge Plan Discharge Plan Patient Disposition: Home Discharge orders & Medications Prescriptions: New oxycodone 5 mg Tablet 5 mg PO Q3HR PRN (Reason: Pain, Moderate (4-6)) Qty: 60 RF: 0 acetaminophen 325 mg Tablet 650 mg PO TID Qty: 20 RF: 0 aspirin 81 mg Tablet,Delayed Release (Dr/Ec) 81 mg PO BID Qty: 30 RF: 0 docusate sodium [DOK] 100 mg Capsule 100 mg PO BID Qty: 60 RF: 0 tamsulosin [Flomax] 0.4 mg Capsule 0.4 mg PO DAILY Qty: 14 RF: 0 Continued travoprost 0.004 % Drops 1 drp EYE-BOTH BEDTIME Qty: 0 RF: 0 aspirin 81 mg Tablet,Delayed Release (Dr/Ec) 162 mg PO DAILY Qty: 0 RF: 0 niacin 100 mg Tablet 200 mg PO DAILY Qty: 0 RF: 0 coenzyme Q10 [CoQ-10] 100 mg Capsule 100 mg PO DAILY Qty: 0 RF: 0 omega 3-mfj-coo-fish oil [Fish Oil] 1,200 (144-216) mg Capsule 2 cap PO DAILY Qty: 0 RF: 0 albuterol sulfate 90 mcg/actuation Hfa Aerosol Inhaler 2 puff INHALATION Q4-6H PRN (Reason: Shortness Of Breath) Qty: 0 RF: 0 multivitamin Capsule 1 cap PO Q OTHER DAY Qty: 0 RF: 0 losartan 50 mg Tablet 50 mg PO DAILY RF: 0 Praluent Pen 75 mg/mL pen injector 75 mg SUBCUT Q2W RF: 0 Follow up/Referrals: Mikey Fonseca MD [Primary Care Provider] - Manjinder Ramirez MD [Physician] - Skin/Wound/Dressing Care Report to your healthcare provider any signs of infection, such as:: chills, fever and increased pain Dressing: leave in place until appointment Discharge Data Primary Care Provider: Mikey Fonseca VTE Deep Vein Thrombosis/Pulmonary Embolism Present on Admission: No
--- NOTE | 2020-08-03 08:32 | CM.DPC ---
DCP Discharge Home Per Ortho PA, pt is medically stable to d/c home today with no identified barriers to discharge. Per RN, no concerns at this time. Pt has plans for friend to provide transport back to [place]. Plan: Patient to d/c home today via friend POV and no further SW needs at this time. [facility] [place]
[2020-08-03] MEDS: ACETAMINOPHEN 325 MG TABLET 650 MG PO (09:07)
[2020-08-03] MEDS: ASPIRIN EC 81 MG TABLET PO (09:09)
[2020-08-03] MEDS: DOCUSATE 100 MG CAPSULE PO (09:09)
[2020-08-03] MEDS: SODIUM CHLORIDE 0.9% FLUSH 10 ML IV (09:10)
[2020-08-03] MEDS: TAMSULOSIN 0.4 MG CAPSULE PO (09:10)
[2020-08-03] MEDS: LOSARTAN 50 MG TABLET PO (09:10)
--- NOTE | 2020-08-03 10:32 | PT.IPTN ---
Current Diagnoses Unilateral primary osteoarthritis, left hip (08/01/20) Surgery Performed Operation Date: 08/01/20 14:00 Actual Procedures p Total Hip Arthroplasty/Anterior Approach(Left) - Manjinder Ramirez MD Physical Therapy Treatment Note M2 PT-IP Current Condition Start: 08/02/20 08:40 Freq: NEEDED Status: Active Protocol: Document 08/02/20 11:30 DE (Rec: 08/02/20 13:20 DE [id number]) Physical Therapy Current Condition Current Condition Evaluation Date 08/02/20 Treatment Diagnosis L PATY anterior; Difficulty in walking Onset Date 08/01/20 Precautions Anterior Hip Precautions No Hip Extension,No Hip External Rotation Weight Bearing Status Weight Bearing Status Touch Down Weight Bearing M3 PT-IP Subjective Start: 08/02/20 08:40 Freq: NEEDED Status: Active Protocol: Document 08/03/20 10:11 SP (Rec: 08/03/20 12:17 SP [id number]) Subjective Physical Therapy Visit Type Type Treatment Note Visit Start Time 10:11 Visit Stop Time 10:32 Total Visit Minutes 21 Number of SPECIAL DIET COOK Visits 2 Physical Therapy Visit Comments Patient Comments Pt agreeable to working with therapy. Therapy Pain Assessment Pain When Pain Assessed During Mobility Pain Present Pain Present Pain Reported Location L anterior hip Intensity 6 Scale Used Numeric (0 - 10) Description Burning,With Movement Pain Behaviors Facial Grimacing Pain Management Techniques Re-positioning,Timing of Activity with Medications M4 PT-IP Mobility and Gait Start: 08/02/20 08:40 Freq: NEEDED Status: Active Protocol: Document 08/03/20 10:11 SP (Rec: 08/03/20 12:17 SP [id number]) PT-Bed Mobility Assessment Supine to Sit Supine to Sit Independent Scooting Scooting to Edge of Bed Independent PT-Transfer Assessment Sit to and From Stand Sit to and from Stand Independent,Use of Upper Extremities Equipment Transfer Assistive Device Gait Belt,Front Wheeled Walker Orthotic/Prosthetic Devices or Brace: No Transfers Transfer Destination Toilet Transfer Technique Amb with FWW Transfer Ability Level of Assist Standby Assistance,Use of Upper Extremities Comments Mobility Comments Pt was inclined in bed when arrived. SPECIAL DIET COOK flattened bed, pt independent supine> sitting, scooting to EOB and sit<> stand using BUE for self mobilization. Pt recalled 2/2 hip recautions and good demonstration throughout tx. Pt ambulated further distance today into hallway to stairs then around nursing station and back to the bathroom using FWW SBA with stagger stance gait step patterning to keep within precautions, intially heavy BUE WB on FWW but decreased need as distance progressed post cuing for upright posture. Pt ascend/ descend 1 step backwards to assimulate getting into changed to elevated trunk up on DC with stability, see stair mob comments. Pt ascended/descended 3 stairs step to patterning with cued for patient requested reassurance for proper patterning lead RLE ascend/LLE descending 1 HR CGA, stable no deviations. Pt was in bathroom when left wanting more time, educated use of call light and within reach for safety when completed for QUALITY PROCESS AUDITOR provide SBA with verbal confirmation. SPECIAL DIET COOK reported progress with QUALITY PROCESS AUDITOR and patient in bathroom with call light when done. Gait Assessment Gait Gait Assistance Required: Standby Assistance Distance (Feet) 220 Able to Maintain Weight Bearing Status Yes During Gait Assistive Devices Assistive Device Gait Belt,Front Wheeled Walker Orthotic/Prosthetic Devices or Brace: No Gait Deviations General Gait Pattern Decreased Stride Length, Decreased Feet Clearance, Flexed Trunk,Step-to Gait Factors Limiting Gait Function Factors Limiting Gait Function Decreased Activity Tolerance, Decreased Sensation,Decreased Strength,Limited Range of Motion,Pain Comments Gait Comments See mobility comments for details. Stair Climbing Assessment Evaluation Level of Assist On Stairs Standby Assistance Devices Stair Climbing Assistive Devices Right Railing Technique/Endurance Stair Climbing Direction Ascend and Descend Stair Climbing Technique Step to Step Number of Steps Climbed 3 Stair Climbing Set # Repetitions (reps) 1 Comments Stair Climbing Comments See mobility comments for details. Also performed back step onto bottom step for patterning assimulate to get into elevated truck with different person upon discharge. Back step to bottom step L UE on FWW and RUE on HR to assimulate WB on car seat cushion or back rest and RLE ascend step with CG- 10 % assist for support of which confident will be ok with person arriving to help him. Discussed with patient for safety to don gait belt for person assist into car seat with verbal comfirmation. PT-Balance Assessment Sitting Balance and Reactions Static Sitting Balance Ability Normal Dynamic Sitting Balance Ability Normal Standing Balance and Reactions Static Standing Balance Ability Good Dynamic Standing Balance Ability Good Device Used FWW M5 PT-IP Objective Assessments Start: 08/02/20 08:40 Freq: NEEDED Status: Active Protocol: Document 08/02/20 11:30 DE (Rec: 08/02/20 13:20 DE [id number]) Orientation Orientation/Cognition Level of Alertness Alert Orientation Name,Age,Birthday,Month,Date, Year,Day of Week,Place, Situation Language Function Ability No Deficits Noted Safety Awareness Understands Safety Issues Memory Description No Deficits Noted Gross Range of Motion Lower Extremity ROM Assessment Left Impaired Strength Lower Extremity Strength Assessment Left Impaired Coordination Assessment Gross Coordination Gross Coordination WNL Sensation Assessment Sensation Gross Sensation Right LE Impaired,Left LE Impaired Light Touch Impaired Sensation Description Numbness Comments Sensation Comments 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 M7 PT-IP Assessment and Plan Start: 08/02/20 08:40 Freq: NEEDED Status: Active Protocol: Document 08/03/20 10:11 SP (Rec: 08/03/20 12:17 SP [id number]) PT Summary Assessment and Plan Potential Rehabilitation Potential Excellent Status of Condition at Evaluation Evolving Summary Impairments Pain,ROM,Strength,Balance,Bed Mobility,Transfers,Gait, Activity Tolerance Progress Towards Goals Progressing Toward Goals Assessment Summary Pt demonstrated I during bed mobility and sit<>stand using BUE and FWW. SBA during gait using FWW and CG- 10 % A during stair mgt RHR forward to enter home and back step 1 step with fww and RHR to assimulate getting into elevated truck. Pt is ok to return home with son to provide minimal support needed when medically cleared. Pt is set up with outpt therapy. Goals Bed Mobility Goal Independent Transfer Goal Independent,Front Wheeled Walker Gait Goal Independent,Front Wheel Walker Gait Distance 200 Other Goals Pt will perform 3 steps up and down with unilateral railing SBA. Days to Meet Goals 3 Frequency of Treatment Frequency Of Treatment Twice a Day Treatment Plan Physical Therapy Treatment Plan Bed Mobility Training,Transfer Training,Gait Training, Therapeutic Exercise,Balance Retraining,Post Op Education, Discharge Planning,Hot or Cold Pack,Neuromuscular Re-ed Other Recommendations and Next Treatment Ther ex, further distance gait Focus . Recommendations To Nursing Amount of Assist Needed Standby Assistance Discharge Recommendations PT Discharge Recommendations Home with Assistance, Outpatient PT Transportation Needs at Discharge Private Vehicle
[2020-08-03 11:32] VITALS: BP 123/80; PULSE 74; RESP 16; TEMP 36.9; O2SAT 93
--- NOTE | 2020-08-03 13:07 | PC.NURSE ---
Discharge instructions and home care handouts reviewed with patient. He states understanding and has no further questions or concerns at this time. IV removed intact. Patient's friend was able to peanut picker his prescriptions for home at pharmacy of his choice. Patient's aquacel dressing to left hip remains CDI, without drainage. Patient cleared by P.T. and states he has follow up appointment already scheduled. Instructed to call surgeons office with questions or concerns, or to seek emergent care for emergency. Patient escorted out via wheelchair by DOCTOR ASSISTANT to be discharged to home.
== END 2020-08-03 13:09 | disposition home or self-care (01) | DRG 470 ==
LOC: OR 10:34 → AC 10:34
PROVIDERS: Admitting Provider Orthopaedic Surgery Adult Reconstructive Orthopaedic Surgery; Family Provider Family Medicine Geriatric Medicine; PCP Family Medicine; Referring Provider Orthopaedic Surgery Adult Reconstructive Orthopaedic Surgery; Visit Provider Orthopaedic Surgery Adult Reconstructive Orthopaedic Surgery
PROC: 0SRB04A Replacement of Left Hip Joint with Ceramic on Polyethylene Synthetic Substitute, Uncemented, Open Approach (ICD-10-PCS; CPT 27130; principal; 2020-08-01 14:00)
DX: M16.12 Unilateral primary osteoarthritis, left hip (principal); I10 Essential (primary) hypertension; E78.5 Hyperlipidemia, unspecified; F32.9 Major depressive disorder, single episode, unspecified; I25.10 Atherosclerotic heart disease of native coronary artery without angina pectoris; J45.909 Unspecified asthma, uncomplicated; I35.1 Nonrheumatic aortic (valve) insufficiency; Z87.891 Personal history of nicotine dependence; R33.9 Retention of urine, unspecified; Z20.828 Contact with and (suspected) exposure to other viral communicable diseases
CPT/HCPCS: 36415; 72170; 72192; 73502; 76000; 85014; 85018; 85025; 87635; 97110; 97116; 97162; C1776; A9270; J0690; J1100; J1885; J2250; J2270; J2274; J2405; J2704; J3010

== ENCOUNTER → 2021-04-03 09:32 | Outpatient (CLI) | payer MEDICARE, BC, SELFPAY ==
[2020-08-01 17:04] VITALS: BMI 26.3
[2021-04-03 11:05] LABS: COVID19 -Nasal RAPID Negative (Negative)
== END ==
PROVIDERS: Family Provider Family Medicine Geriatric Medicine; PCP Family Medicine; Visit Provider Physician Assistant
DX: Z01.812 Encounter for preprocedural laboratory examination (principal); Z20.822 Contact with and (suspected) exposure to COVID-19
CPT/HCPCS: 87635; C9803

== ENCOUNTER 2021-04-06 08:45 | Observation (INO) | payer MEDICARE, BC, SELFPAY ==
[2020-08-01 17:04] VITALS: BMI 26.3
[2021-03-29 12:45] VITALS: BMI 27.4
[2021-04-05] VITALS (16 sets, daily range): BP systolic 86–167; BP diastolic 52–107; PULSE 45–62; RESP 10–20; TEMP 35.8–37.1; O2SAT 94–99; BMI 27.4
--- NOTE | 2021-04-05 | DI.RAD.S_ITS ---
PROCEDURE: XR KNEE LT 1TO2V INDICATIONS: LEFT POST OP KNEE TECHNIQUE: 2 view(s) of the knee acquired. COMPARISON: [facility], , KNEE 1-2 VIEWS RIGHT, 01/23/2011, 16:39. FINDINGS: Bones: Patient is status post knee joint arthroplasty. Hardware components are in expected positions. Visualized bony structures are intact. Soft tissues: Overlying postoperative changes are noted. Atherosclerotic vascular calcification noted. IMPRESSION: Left total knee prosthesis in good position Approved by: Fran Saldivar M.D. on 04/05/2021 at 14:45
[2021-04-05] MEDS: LACTATED RINGERS 1,000 ML 84 ML IV (10:16)
--- NOTE | 2021-04-05 12:09 | PM.PREOP ---
Pre-operative Note COVID-19 COVID-19 status: Negative Result date/Date tested (Pos, Neg/Pending): 04/03/21 Interval Note History & Physical reviewed/Exam performed by Physician: Yes Changes to H&P: No H&P completed within 30 days and has changed as indicated here:: Plan for L TKA
[2021-04-05] MEDS: LACTATED RINGERS 1,000 ML 50 ML IV (12:12)
--- NOTE | 2021-04-05 12:37 | SUR.PREOP ---
Block start time [1227] . Monitoring initiated and maintained throughout procedure. Oxygen at 2LNP, medications given by the anesthesiologist . Patient remained stable throughout procedure, no adverse reactions noted. Block end time [1234].
[2021-04-05] MEDS: TRANEXAMIC ACID 1,000 MG VIAL 2000 MG INJ (13:08)
[2021-04-05] MEDS: CEFAZOLIN 1 GM VIAL 2 GM IV ×2 (13:08→20:45)
--- NOTE | 2021-04-05 13:20 | SUR.OPER ---
Supine on padded OR bed. Pillow under head, arms secured on padded armboards <90 degree abduction. Safety belt across torso. Non-operative leg secured with tape over blanket over lower leg. Operative leg secured in DeMayo/Tristin/Nathe positioner. Foam padded brace at thigh of operative leg.
[2021-04-05] MEDS: KETOROLAC 30 MG/ML VIAL IV (13:25)
[2021-04-05] MEDS: MORPHINE 4 MG/ML INJ INJ (13:25)
[2021-04-05] MEDS: ROPIVACAINE 0.5% PF 5 MG/ML 20ML VIAL 10 ML INJ (13:26)
--- NOTE | 2021-04-05 14:34 | PM.OP.1 ---
Operative Date/Time/Diagnoses Date of procedure: 04/05/21 Time of procedure: 14:34 Pre-op diagnosis: left knee OA Post-op diagnosis: same Procedure & Clinicians Procedure: LEft TKA Same procedure as scheduled: Yes Indications: left knee OA resistant to further conservative measures Surgeon: Manjinder Ramirez Meat Carrier: Isac Eubanks Click Yes if Unassisted: No Anesthesia Type: Spinal Operative Notes Findings: left knee OA, valgus alignment of left knee Closure Type: primary Specimen(s): none sent Prosthetic devices, grafts, tissues, transplants, or devices: Mendoza and Nephew Journey II size 8, left CR oxinium femur Journey size 7, left tibial base plate 35mm oval button, cooper II Size 7-8, left 9mm Journey II deep dish polytheylene Estimated Blood Loss (mL): 50 Tourniquet time (min): 52 Procedure in detail: Patient was met in the preoperative holding area where the site and side of surgery marked by MD. Informed and written reviewed in clinic was also reviewed the preoperative holding area. All last minute questions were answered. Patient was then brought back in the operating room where he received a spinal anesthetic. The left lower extremity had a nonsterile tourniquet placed on left thigh. Left lower extremity then prepped and draped in normal sterile fashion. Surgical time-out performed verifying the site and side surgery well then the patient. Esmarch was then used to exsanguinate the left lower extremity extremity and the tourniquet was inflated 250 mmHg. A longitudinal incision over the anterior aspect of the knee was made with a 10. Blade. A new 10. Blade was then used to elevate medial lateral flaps. Imminent medial parapatellar arthrotomy was then performed Hoffa's fat pad was then removed a medial peel was then performed and the remnant of the lateral meniscus was removed as well as the remnant of the ACL. [place]'s line was then marked. Drill entry portal site for the femur and tibia were then made. Drill was then used to enter the femur and tibia respectively. Intramedullary mari was then placed into the femur distal femoral cutting block was then placed which was a 7 degree distal femoral cutting block. This was pinned into place a 2 mm extra were taken because patient was noted to have a flexion contracture preoperatively. This was then removed and the intramedullary mari was then placed at the femur the outrigger was then used to pin the tibial cutting jig into place. A trial forearm was then used to verify alignment. This was pinned into place and the tibial cut was made this was then removed along with the remnant of the medial meniscus. The PCL was preserved. The knee was then brought in full extension and was a bit tighter on the lateral side than the medial side. This is not surprising as he has a valgus alignment of the extremity. A 15 blade was then used to pie crust which corrected alignment. The knee was then brought to flexion and a gap sustainable communities designer was then used drill holes were then drilled. The gap sustainable communities designer was then removed and the the femoral Sizer was placed and sized to a size 8. A size 8 5 in 1 cutting block was then pinned onto the distal femur and all 5 cuts were then made. The cutting block was then removed along the bony fragments. A size 8 trial of femoral component was then malleted into place along with a size 7 tibia base plate with a 9 mm thick CR polyethylene. The knee was brought through range of motion excellent stability in varus and valgus throughout range of motion as well as full extension and deep flexion. The patella was then cut using freehand technique and sized to a 35 mm button. This was then drilled in place. Knee was brought through range of motion with good patellar tracking. No liftoff or tilt. The tibial base plate was marked using a floating technique. The lug holes for the femur were then drilled. And the trial components were then removed. Local anesthetic was then infiltrated in the periarticular soft tissues including the back of the knee. The tibia was then placed back on the tibia and pinned into place the keel was then drilled and punched and bony fragments were placed inside the tibial canal and we punched. Next the knee was copiously irrigated with pulse lavage normal saline the cut surface of the femur tibia and patella were thoroughly irrigated the surfaces were then dried cement was mixed cement was then packed into the keel hole in the cut surface of the tibia and cement placed on the undersurface of the tibial base plate this was then malleted into place excess cement was removed. Cement was then packed on the cut surface of the femur with exception the posterior condylar cut cement was placed on the feet of the femoral component this was malleted into place and excess cement was removed. A size 9 mm thick CR polyethylene trial was then placed in the was brought to full extension and was held in internal rotation. Cement was then placed onto the cut surface of the patella between the local the patellar component this was then clamped in place excess cement was removed the tourniquet was let down and Betadine solution was placed into the wound. Cement was allowed to fully cure once this had fully cured copious normal saline with pulse lavage was used to thoroughly irrigate the knee the knee was brought through final range of motion and a 9 mm thick deep dish polyethylene was selected this was then placed make sure the medial lateral tabs well engaged. Any excess cement was removed. Hemostasis was achieved using electrocautery. The medial parapatellar arthrotomy was closed using 1. Vicryl interrupted fashion followed by running Quill suture followed by 2 Vicryl interrupted fashion in the subcutaneous layer followed by running 3-0 Stratafix followed by Dermabond Aquacel dressing. Post-operative Condition: stable Disposition: PACU Plan for aftercare: 24 hours post-op abx, ASA 81mg BID for 6 weeks for DVT prophylaixs, WBAT LLE
[2021-04-05] MEDS: IBUPROFEN 400 MG TABLET PO ×2 (16:41→20:46)
[2021-04-05] MEDS: ACETAMINOPHEN 325 MG TABLET 650 MG PO ×2 (16:41→20:45)
[2021-04-05] MEDS: polyethylene glycoL 3350 17 GM POWD.PACK PO (16:42)
[2021-04-05] MEDS: LACTATED RINGERS 1,000 ML 100 ML IV (16:44)
[2021-04-05] MEDS: ASPIRIN EC 81 MG TABLET PO (20:45)
[2021-04-05] MEDS: LATANOPROST 0.005% OPHTH 2.5 ML 1 DROPS EYE-BOTH (21:42)
--- NOTE | 2021-04-05 22:01 | PC.NURSE ---
Addendum to skin assessment as completed by this race and sports book writer. Noted pt has bruises to BL outer forearms.
--- NOTE | 2021-04-05 23:47 | PC.ADMIT ---
[id number] Admission Note: Patient admitted to floor at 16:00, alert and oriented, able to make needs known. Denies pain. Patient shown how to use call light and calling appropriately. Dressing CDI. Ice pack to knee. The patient,Isac Christina,76 y/o, was given written information regarding hospital policies, unit procedures and contact persons. Patient's smoking status: Former smoker. Vital Signs - 8 hr 04/05/21 16:10 04/05/21 16:40 04/05/21 17:40 Temperature 96.6 F L 96.8 F L 97.4 F L Pulse Rate 50 L 45 L 53 L Respiratory Rate 15 15 14 Blood Pressure 133/86 146/94 H 167/63 H Pulse Oximetry 98 99 98 04/05/21 18:40 Temperature 97.4 F L Pulse Rate 52 L Respiratory Rate 15 Blood Pressure 109/57 L Pulse Oximetry 96
[2021-04-06] VITALS (8 sets, daily range): BP systolic 112–153; BP diastolic 60–94; PULSE 52–65; RESP 14–19; TEMP 36.2–37.2; O2SAT 96–100
[2021-04-06] MEDS: IBUPROFEN 400 MG TABLET PO ×5 (00:16→20:22)
[2021-04-06] MEDS: LACTATED RINGERS 1,000 ML 100 ML IV (01:24)
[2021-04-06] MEDS: CEFAZOLIN 1 GM VIAL 2 GM IV (05:23)
[2021-04-06 06:03] LABS: Hematocrit 40.1 % (41-53); Hemoglobin 13.6 g/dL (13.5-17.5)
--- NOTE | 2021-04-06 07:47 | PM.DS.1 ---
History of Present Illness History of Present Illness Chief complaint: OPB Narrative: Patient's pain is [id number]. Denies fever or chills. No nausea or vomiting. Discharge Providers Provider Discharge Date: 04/06/21 Primary care physician: Mikey Fonseca MD Consults: 03/28/21 08:06 Consult to Anesthesiology Routine Comment: Consulting Provider: Anesthesiologist Reason for consultation: Regional block for post operative pain control 04/05/21 15:47 Consult to Discharge Planning Routine Comment: Consult to Physical Therapy Evaluate & Treat Comment: Physician Instructions: postop TKA protocol Consult to Respiratory Therapy Evaluate & Treat Comment: Physician Instructions: Evaluate and treat Discharge provider: Isac Eubanks PA-C Summary Hospital Course Discharge Diagnosis: Left knee osteoarthritis Hospital Course: Procedure: LEft TKA Same procedure as scheduled: Yes Indications: left knee OA resistant to further conservative measures Surgeon: Manjinder Ramirez Polymerization Engineer: Isac Eubanks Click Yes if Unassisted: No Anesthesia Type: Spinal Operative Notes Findings: left knee OA, valgus alignment of left knee Closure Type: primary Specimen(s): none sent Prosthetic devices, grafts, tissues, transplants, or devices: Mendoza and Nephew Journey II size 8, left CR oxinium femur Journey size 7, left tibial base plate 35mm oval button, cooper II Size 7-8, left 9mm Journey II deep dish polytheylene Estimated Blood Loss (mL): 50 Tourniquet time (min): 52 Patient admitted to the hospital for left total knee arthroplasty. Patient consented to the same. Patient taken operating room on April 05, 2021 underwent left total knee arthroplasty. Patient back in his room recovering well as in stable condition. Patient will be maintained on standard total knee arthroplasty protocol. Discharge home today after physical therapy if safe for home environment. Exam Vital Signs (past 8 hours): - 04/06/21 00:58 04/06/21 04:58 Temperature 97.6 F 97.2 F L Pulse Rate 56 L 52 L Respiratory Rate 16 16 Blood Pressure 140/87 142/91 H Pulse Oximetry 97 98 Oxygen Delivery Method Room Air Oxygen Flow Rate 0 Narrative Exam Narrative: Pleasant 76-year-old male resting comfortably in bed in no apparent distress. Dressing is Clean, dry, intact.. Motor functions intact bilateral lower extremities. Sensation grossly intact to light touch bilateral lower extremities. Objective Labs Result Diagrams: 04/06/21 05:35 Labs: Laboratory Results - last 24 hr 04/06/21 05:35 Hgb 13.6 Hct 40.1 L PFSH Medical History Asthma Borderline diabetes Depression Glaucoma HLD (hyperlipidemia) HTN (hypertension) Hx of angiography (~2002) Impaired hearing Peripheral neuropathy Skin cancer Surgical History History of arthroplasty of right knee (01/23/11) History of arthroscopy of both knees History of colonoscopy History of surgery History of surgery History of surgery History of total left hip arthroplasty (08/01/20) Hx of bilateral cataract extraction Hx of hemorrhoidectomy S/P CABG x 4 (~2002) Social History household members: children Smoking Status: Former smoker alcohol intake: current Discharge Assessment & Plan Assessment and Plan Assessment: Patient progressing as expected status post left total knee arthroplasty Plan of Treatment: Patient will be maintained on standard total knee arthroplasty protocol. Weightbearing as tolerated. Mobilize with physical therapy. Discharge home today after physical therapy if safe for home environment. Discharge Plan Discharge Plan Patient Disposition: Home Provider Discharge Comment: Discharge home after physical therapy if safe for home environment Discharge orders & Medications Discharge Orders: Discharge (Order); Ordered 04/06/21 Ordered By: Isac Eubanks Prescriptions: New acetaminophen 325 mg Tablet 650 mg PO TID Qty: 60 RF: 0 polyethylene glycol 3350 17 gram Powder In Packet 17 g PO DAILY PRN (Reason: Constipation) Qty: 14 RF: 0 aspirin 81 mg Tablet,Delayed Release (Dr/Ec) 81 mg PO BID Qty: 60 RF: 0 ibuprofen 400 mg Tablet 400 mg PO Q4HR Qty: 60 RF: 0 oxycodone 10 mg Tablet 10 mg PO Q3HR PRN (Reason: Pain, Severe (7-10)) Qty: 60 RF: 0 Continued travoprost 0.004 % Drops 1 drp EYE-BOTH BEDTIME Qty: 0 RF: 0 niacin 100 mg Tablet 200 mg PO DAILY Qty: 0 RF: 0 coenzyme Q10 [CoQ-10] 100 mg Capsule 100 mg PO DAILY Qty: 0 RF: 0 omega 2-mpu-uxr-fish oil [Fish Oil] 1,200 (144-216) mg Capsule 2 cap PO DAILY Qty: 0 RF: 0 albuterol sulfate 90 mcg/actuation Hfa Aerosol Inhaler 2 puff INHALATION Q4-6H PRN (Reason: Shortness Of Breath) Qty: 0 RF: 0 multivitamin Capsule 1 cap PO Q OTHER DAY Qty: 0 RF: 0 losartan 50 mg Tablet 50 mg PO DAILY RF: 0 Praluent Pen 75 mg/mL pen injector 75 mg SUBCUT Q2W RF: 0 docusate sodium [DOK] 100 mg Capsule 100 mg PO BID Qty: 60 RF: 0 tamsulosin [Flomax] 0.4 mg Capsule 0.4 mg PO DAILY Qty: 14 RF: 0 Discontinued aspirin 81 mg Tablet,Delayed Release (Dr/Ec) 162 mg PO DAILY Qty: 0 RF: 0 oxycodone 5 mg Tablet 5 mg PO Q3HR PRN (Reason: Pain, Moderate (4-6)) Qty: 60 RF: 0 acetaminophen 325 mg Tablet 650 mg PO TID Qty: 20 RF: 0 aspirin 81 mg Tablet,Delayed Release (Dr/Ec) 81 mg PO BID Qty: 30 RF: 0 Follow up/Referrals: Mikey Fonseca MD [Primary Care Provider] - Manjinder Ramirez MD [Physician] - (2 weeks) Diet/Activity/Treatments Diet: Diet as Tolerated Activity: Weight-bearing as tolerated Cold/Heat Therapy: Ice as needed Skin/Wound/Dressing Care Report to your healthcare provider any signs of infection, such as:: chills, fever, increased pain, unusual drainage and unusual redness Dressing: Keep dressing clean and dry, may remove Karlo wrap within 48-72 hours, leave dressing in place Visit Report/Discharge Packet Instructions: DI for Knee Replacement Stand Alone Forms: Surgery Discharge Discharge Data Primary Care Provider: Mikey Fonseca Attending Provider: Manjinder Ramirez
[2021-04-06] MEDS: OXYCODONE IR 10 MG TABLET PO ×2 (07:52→21:39)
[2021-04-06] MEDS: ASPIRIN EC 81 MG TABLET PO ×2 (08:32→20:22)
[2021-04-06] MEDS: LOSARTAN 50 MG TABLET PO (08:32)
[2021-04-06] MEDS: TAMSULOSIN 0.4 MG CAPSULE PO (08:33)
[2021-04-06] MEDS: DOCUSATE 100 MG CAPSULE PO ×2 (08:33→20:23)
--- NOTE | 2021-04-06 08:55 | PT.IIE ---
Current Diagnoses Unilateral primary osteoarthritis, left knee (04/06/21) Surgery Performed Operation Date: 04/05/21 12:15 Actual Procedures p Total Knee Arthroplasty(Left) - Manjinder Ramirez MD Medical History (Last Reviewed 04/06/21 @ 07:53 by Isac Eubanks PA-C) Asthma Borderline diabetes Depression Glaucoma HLD (hyperlipidemia) HTN (hypertension) Hx of angiography (~2002) Impaired hearing Peripheral neuropathy Skin cancer Physical Therapy Inpatient Evaluation/Re-Eval M1 PT/OT-IP Prior Functional Status Start: 04/06/21 11:48 Freq: NEEDED Status: Active Protocol: Document 04/06/21 08:55 AB (Rec: 04/06/21 12:03 AB [email or web address]) Medical Review Prior Functional Status Medical History Reviewed Yes Communication able to make needs known Mobility and Gait pt stated that he is independent with all mobilities and ambulation without AD Social History Household Members children Living Arrangements House Number of Floors (Floors) Two Floors Number of Stairs To Enter/Railing? pt will stay on main level of the house 3 steps B wide rails (can only hold on to one rail at a time ) to enter the house Home Environment Standard Height Toilet,Built- In Shower Seat Home Equipment Front Wheel Walker,Straight Cane,Shower Seat without Backrest,Polishing Wheel Setter Additional Social History Comment pt stated that his son who is ~ 40 y/o can assist M2 PT-IP Current Condition Start: 04/06/21 11:48 Freq: NEEDED Status: Active Protocol: Document 04/06/21 08:55 AB (Rec: 04/06/21 12:03 AB [email or web address]) Physical Therapy Current Condition Current Condition Evaluation Date 04/06/21 Treatment Diagnosis s/p LTKA; difficulty in walking Onset Date 04/05/21 Weight Bearing Status Weight Bearing Status Weight Bear as Tolerated Allowed Weight Bearing Amount (enter % LLE WBAT or #) (%) M3 PT-IP Subjective Start: 04/06/21 11:48 Freq: NEEDED Status: Active Protocol: Document 04/06/21 08:55 AB (Rec: 04/06/21 12:03 AB [email or web address]) Subjective Physical Therapy Visit Type Type Initial Evaluation Visit Start Time 08:55 Visit Stop Time 09:45 Total Visit Minutes 50 Number of NEW VEHICLE SALES CONSULTANT Visits 0 Physical Therapy Visit Comments Patient Comments agreeable to do PT Therapy Pain Assessment Pain When Pain Assessed At Rest Pain Present Pain Present Pain Reported Location Left Knee Intensity 3 Scale Used 5/10 with mobility Pain Management Techniques Apply Cold,Distraction, Modification of Treatment,Re- positioning,Timing of Activity with Medications M4 PT-IP Mobility and Gait Start: 04/06/21 11:48 Freq: NEEDED Status: Active Protocol: Document 04/06/21 08:55 AB (Rec: 04/06/21 12:03 AB [email or web address]) PT-Bed Mobility Assessment Supine to Sit Supine to Sit Standby Assistance PT-Transfer Assessment Sit to and From Stand Sit to and from Stand Standby Assistance,Contact Guard Assistance,1 Person Assistance,Use of Upper Extremities Equipment Transfer Assistive Device Gait Belt,Front Wheeled Walker Transfers Transfer Destination Chair Transfer Technique ambulated Transfer Ability Level of Assist Standby Assistance,Contact Guard Assistance,1 Person Assistance,Use of Upper Extremities Comments Mobility Comments Bp supine: 134/78. pt agreed to do PT. completed supine to sit SBA. pt was able to sit on EOB SBA. no c/o dizziness/ lightheadedness. completed sit to stand CGA and ambulated in room using FWW SBA to CGA ~ 35 ft. instructed pt to sit down. pt still stating that he feels ok. noticed pt face is pale/pastey. BP checked: 117/52. instructed pt to rest . BP checked again after 2 min: 97/64. checked again after 2 min: 75/44 L UE. nurse made aware. BP checked on RUE: 61/39. reclined pt on the chair. BP checked after 2 min: 91/51. Left pt with nurse. Gait Assessment Gait Gait Assistance Required: Standby Assistance,Contact Guard Assist Distance (Feet) 35 Able to Maintain Weight Bearing Status Yes During Gait Assistive Devices Assistive Device Gait Belt,Front Wheeled Walker Orthotic/Prosthetic Devices or Brace: No Gait Deviations General Gait Pattern Antalgic,Decreased Stride Length,Decreased Feet Clearance Factors Limiting Gait Function Factors Limiting Gait Function Decreased Activity Tolerance, Decreased Sensation,Decreased Strength,Limited Range of Motion,Pain,Poor Balance PT-Balance Assessment Sitting Balance and Reactions Static Sitting Balance Ability Normal Dynamic Sitting Balance Ability Good Standing Balance and Reactions Static Standing Balance Ability Fair Dynamic Standing Balance Ability Fair Device Used FWW M5 PT-IP Objective Assessments Start: 04/06/21 11:48 Freq: NEEDED Status: Active Protocol: Document 04/06/21 08:55 AB (Rec: 04/06/21 12:03 AB [email or web address]) Orientation Orientation/Cognition Level of Alertness Alert Orientation Name,Age,Birthday,Month,Date, Year,Day of Week,Place, Situation Language Function Ability No Deficits Noted Safety Awareness Understands Safety Issues Memory Description No Deficits Noted Gross Range of Motion Lower Extremity ROM Assessment Left Impaired Impairments L knee flexion: ~ 70 deg L knee extension: ~ 10 deg less to 0 Strength Lower Extremity Strength Assessment Left Impaired Hip 4+/5 Knee 4-/5 Sensation Assessment Sensation Gross Sensation Right UE Impaired,Left UE Impaired,Left LE Impaired Sensation Description Numbness,Tingling Comments Sensation Comments neuropathy BUE/LE per pt Muscle Tone Muscle Tone WNL Yes M6 PT-IP Treatment Start: 04/06/21 11:48 Freq: NEEDED Status: Active Protocol: Document 04/06/21 08:55 AB (Rec: 04/06/21 12:03 AB [email or web address]) Physical Therapy Treatment Exercises Exercises Heel Slides Education Education Provided Precautions,Weight Bearing Status,Post-Op Packet,Safety M7 PT-IP Assessment and Plan Start: 04/06/21 11:48 Freq: NEEDED Status: Active Protocol: Document 04/06/21 08:55 AB (Rec: 04/06/21 12:03 AB [email or web address]) PT Summary Assessment and Plan Potential Rehabilitation Potential Good Status of Condition at Evaluation Evolving Summary Impairments Pain,ROM,Strength,Balance, Coordination,Sensation,Tone, Cognition,Bed Mobility, Transfers,Gait,Activity Tolerance Assessment Summary pt requiring SBA to CGA with mobility but unable to tolerate much activity with decrease BP to 61/39 after ambulation. will need to assess progress. will need to conduct stair climbing training prior to d/c. Goals Bed Mobility Goal Independent Transfer Goal Independent,Front Wheeled Walker Gait Goal Independent,Front Wheel Walker Gait Distance 200 Other Goals up/down 3 steps 1 rail SBA Days to Meet Goals 5 Frequency of Treatment Frequency Of Treatment Twice a Day Treatment Plan Physical Therapy Treatment Plan Bed Mobility Training,Transfer Training,Gait Training, Therapeutic Exercise,Balance Retraining,Post Op Education, Discharge Planning,Hot or Cold Pack,Neuromuscular Re-ed, Coordination Retraining,Manual Therapy Precautions Other Precautions BP; LLE WBAT Recommendations To Nursing Amount of Assist Needed 1 Person Assist Discharge Recommendations PT Discharge Recommendations Home with Assistance, Outpatient PT Transportation Needs at Discharge Private Vehicle
--- NOTE | 2021-04-06 09:14 | CM.DANOTE ---
DCP: Case received, EMR reviewed and met with patient. Introduced self and role. Was able to obtain informatin regarding patient's baseline activity status prior to hospitalization, as well as his current living situation. DCP assessment completed with information currently available. Patient is a 76 year old male who admitted yesterday morning to the care of the orthopedic team. PCP: Dr. Fonseca. Payer: confirmed: Medicare/BCBS Out of [facility]. Patient came to the hospital for a surgical procedure. He had left total knee arthroplasty. Patient has history of osteoarthritis. Met with patient in his room. He was sitting up in bed, alert and oriented, pleasant. Confirmed with patient that he resides on [address]. His son, Donn, lives with him. Patient indicated, he has [employer], but he can help take care of me. He also indicated that he has a neighbor named Chelsea, who will be picking him up and assisting at home. [place] 3:[place] ferry [place], and updated coordinator for priority boarding pass. Patient indicated, he is active at baseline, swims, rows, and does [employer]. He goes over to [place], there is a pool there at he goes to. He walks for miles at his baseline as well. P: Patient has discharge orders for home today. He will be working with P.T. today as well. Galina Dyer RN/Tree Trimming Line Technician
[2021-04-06] MEDS: SODIUM CHLORIDE 0.9% 500 ML 1000 ML IV (10:47)
--- NOTE | 2021-04-06 11:17 | PC.NURSE ---
This morning while working with PT, pt experienced a significant drop in blood pressure. Before beginning PT, his bp was 130s over 70s and during PT his bp dropped to 68/44. Patient denied symptoms. Guided to chair and placed in trendelenberg position. Bp not showing much improvement. Call placed to [facility], and verbal order for 500 mL bolus of NS received. Bolus given and BP now 112/60, pt remains asymptomatic.
--- NOTE | 2021-04-06 13:41 | PT.IPTN ---
Current Diagnoses Unilateral primary osteoarthritis, left knee (04/06/21) Surgery Performed Operation Date: 04/05/21 12:15 Actual Procedures p Total Knee Arthroplasty(Left) - Manjinder Ramirez MD Physical Therapy Treatment Note M2 PT-IP Current Condition Start: 04/06/21 11:48 Freq: NEEDED Status: Active Protocol: Document 04/06/21 08:55 AB (Rec: 04/06/21 12:03 AB [email or web address]) Physical Therapy Current Condition Current Condition Evaluation Date 04/06/21 Treatment Diagnosis s/p LTKA; difficulty in walking Onset Date 04/05/21 Weight Bearing Status Weight Bearing Status Weight Bear as Tolerated Allowed Weight Bearing Amount (enter % LLE WBAT or #) (%) M3 PT-IP Subjective Start: 04/06/21 11:48 Freq: NEEDED Status: Active Protocol: Document 04/06/21 13:13 CLB (Rec: 04/06/21 14:03 CLB [id number]) Subjective Physical Therapy Visit Type Type Treatment Note Visit Start Time 13:13 Visit Stop Time 13:41 Total Visit Minutes 28 Number of PUBLIC BATH ATTENDANT Visits 1 Physical Therapy Visit Comments Patient Comments agreeable to do PT Therapy Pain Assessment Pain When Pain Assessed At Rest Pain Present Pain Present Pain Reported M4 PT-IP Mobility and Gait Start: 04/06/21 11:48 Freq: NEEDED Status: Active Protocol: Document 04/06/21 13:13 CLB (Rec: 04/06/21 14:03 CLB [id number]) PT-Transfer Assessment Sit to and From Stand Sit to and from Stand Standby Assistance,1 Person Assistance,Use of Upper Extremities Equipment Transfer Assistive Device Gait Belt,Front Wheeled Walker Transfers Transfer Destination Chair,Wheelchair Transfer Technique ambulated Transfer Ability Level of Assist Standby Assistance,1 Person Assistance,Use of Upper Extremities Comments Mobility Comments BP in sitting 120/62, standing 120/80, standing after activity 141/83. Pt ambulated ~100 ft w/FWW/SBA to therapy stairs and climbed three steps with left rail, step to step ,SBA. Pt then sat in WC and rode back to room, upon return pt sat in chair SBA and performed HS and seated knee flx/ext. Pt BP at end of tx 101/74 in sitting, after 2 minutes BP in sitting 101/66, RN called and took over care. Gait Assessment Gait Gait Assistance Required: Standby Assistance,1 Person Assist Distance (Feet) 100 Able to Maintain Weight Bearing Status Yes During Gait Assistive Devices Assistive Device Gait Belt,Front Wheeled Walker Orthotic/Prosthetic Devices or Brace: No Gait Deviations General Gait Pattern Antalgic,Decreased Stride Length,Decreased Feet Clearance Factors Limiting Gait Function Factors Limiting Gait Function Decreased Activity Tolerance, Decreased Sensation,Decreased Strength,Limited Range of Motion,Pain,Poor Balance Stair Climbing Assessment Evaluation Level of Assist On Stairs Standby Assistance,1 Person Assistance Devices Stair Climbing Assistive Devices Left Railing Technique/Endurance Stair Climbing Direction Ascend and Descend Stair Climbing Technique Step to Step Number of Steps Climbed 3 Stair Climbing Set # Repetitions (reps) 1 PT-Balance Assessment Sitting Balance and Reactions Static Sitting Balance Ability Normal Dynamic Sitting Balance Ability Good Standing Balance and Reactions Static Standing Balance Ability Fair Dynamic Standing Balance Ability Fair Device Used FWW M5 PT-IP Objective Assessments Start: 04/06/21 11:48 Freq: NEEDED Status: Active Protocol: Document 04/06/21 08:55 AB (Rec: 04/06/21 12:03 AB [id number]) Orientation Orientation/Cognition Level of Alertness Alert Orientation Name,Age,Birthday,Month,Date, Year,Day of Week,Place, Situation Language Function Ability No Deficits Noted Safety Awareness Understands Safety Issues Memory Description No Deficits Noted Gross Range of Motion Lower Extremity ROM Assessment Left Impaired Impairments L knee flexion: ~ 70 deg L knee extension: ~ 10 deg less to 0 Strength Lower Extremity Strength Assessment Left Impaired Hip 4+/5 Knee 4-/5 Sensation Assessment Sensation Gross Sensation Right UE Impaired,Left UE Impaired,Left LE Impaired Sensation Description Numbness,Tingling Comments Sensation Comments neuropathy BUE/LE per pt Muscle Tone Muscle Tone WNL Yes M6 PT-IP Treatment Start: 04/06/21 11:48 Freq: NEEDED Status: Active Protocol: Document 04/06/21 13:13 CLB (Rec: 04/06/21 14:03 CLB [id number]) Physical Therapy Treatment Exercises Exercises Heel Slides,Straight Leg Raises,Seated Knee Flexion/ Extension Education Education Provided Precautions,Weight Bearing Status,Post-Op Packet,Safety M7 PT-IP Assessment and Plan Start: 04/06/21 11:48 Freq: NEEDED Status: Active Protocol: Document 04/06/21 13:13 CLB (Rec: 04/06/21 14:03 CLB [id number]) PT Summary Assessment and Plan Potential Rehabilitation Potential Good Status of Condition at Evaluation Evolving Summary Impairments Pain,ROM,Strength,Balance, Coordination,Sensation,Tone, Cognition,Bed Mobility, Transfers,Gait,Activity Tolerance Assessment Summary Pt requiring SBA for all mobility with increase in gait distance to ~100ft w/FWW. Pt able to climb three steps SBA. Pt BP at start of tx WNL with decrease in BP after tx to 101/74 in sitting and 101/66 in sitting after two minutes. Pt seems safe to d/c home when medically stable. Goals Bed Mobility Goal Independent Transfer Goal Independent,Front Wheeled Walker Gait Goal Independent,Front Wheel Walker Gait Distance 200 Other Goals up/down 3 steps 1 rail SBA Days to Meet Goals 5 Frequency of Treatment Frequency Of Treatment Twice a Day Treatment Plan Physical Therapy Treatment Plan Bed Mobility Training,Transfer Training,Gait Training, Therapeutic Exercise,Balance Retraining,Post Op Education, Discharge Planning,Hot or Cold Pack,Neuromuscular Re-ed, Coordination Retraining,Manual Therapy Precautions Other Precautions BP; LLE WBAT Recommendations To Nursing Amount of Assist Needed 1 Person Assist Discharge Recommendations PT Discharge Recommendations Home with Assistance, Outpatient PT Transportation Needs at Discharge Private Vehicle
[2021-04-06] MEDS: ACETAMINOPHEN 325 MG TABLET 650 MG PO ×2 (15:03→20:23)
[2021-04-06] MEDS: SODIUM CHLORIDE 0.9% 1,000 ML 150 ML IV (15:03)
[2021-04-06 15:54] LABS: Hematocrit 37.8 % (41-53); Hemoglobin 13.1 g/dL (13.5-17.5)
[2021-04-06] MEDS: LATANOPROST 0.005% OPHTH 2.5 ML 1 DROPS EYE-BOTH (20:25)
[2021-04-07] VITALS (9 sets, daily range): BP systolic 123–170; BP diastolic 80–105; PULSE 60–63; RESP 15–17; TEMP 36.2–36.6; O2SAT 95–97
--- NOTE | 2021-04-07 00:42 | PC.NURSE ---
Patient is alert and oriented. Breath sounds CTA with RA sat of 97%. HRR w/telemetry reading of SR w/1st degree AVB. Denied nausea. BT present and is passing flatus. Is voiding per urinal and denied dysuria, frequency or urgency. Is able to move himself in bed. When up is using walker and SBA for safety. Aquacel dressing to left knee intact with small spot of drainage on proximal end; knee is wrapped with karie wrap. Stated pain only 2/10 and is mild throb but improved since receiving Oxycodone earlier; ice pack applied. Has chronic neuropathy in bilateral hands and legs/feet and stated that is unchanged; CMS is otherwise intact. Wearing bilateral calf SCD's. Fall risk score is moderate but patient is calling for assistance appropriately so alarm is not currently being used.
[2021-04-07] MEDS: SODIUM CHLORIDE 0.9% 1,000 ML 150 ML IV (01:07)
[2021-04-07] MEDS: IBUPROFEN 400 MG TABLET PO ×4 (01:07→13:44)
[2021-04-07] MEDS: OXYCODONE IR 10 MG TABLET PO ×3 (02:25→13:39)
[2021-04-07] MEDS: DOCUSATE 100 MG CAPSULE PO (08:16)
[2021-04-07] MEDS: LOSARTAN 50 MG TABLET PO (08:16)
[2021-04-07] MEDS: ASPIRIN EC 81 MG TABLET PO (08:16)
[2021-04-07] MEDS: TAMSULOSIN 0.4 MG CAPSULE PO (08:17)
[2021-04-07] MEDS: ACETAMINOPHEN 325 MG TABLET 650 MG PO (08:17)
--- NOTE | 2021-04-07 08:19 | PM.DS.1 ---
History of Present Illness History of Present Illness Date Patient Seen: 04/07/21 Time Patient Seen: 08:21 Chief complaint: OPB Narrative: The patient is complaining of mild low back pain, which is well controlled on current medications. He was posted discharged home yesterday helped, however he became hypotensive when sitting in the chair and was therefore kept an additional night. He is feeling much better currently, denies any dizziness or lightheadedness. He denies any fevers, chills, night sweats. He has baseline numbness and tingling due to his neuropathy and prior surgeries, which is unchanged currently. Discharge Providers Provider Date of admission: 04/06/21 08:45 Discharge Date: 04/07/21 Primary care physician: Mikey Fonseca MD Consults: 03/28/21 08:06 Consult to Anesthesiology Routine Comment: Consulting Provider: Anesthesiologist Reason for consultation: Regional block for post operative pain control 04/05/21 15:47 Consult to Discharge Planning Routine Comment: Consult to Physical Therapy Evaluate & Treat Comment: Physician Instructions: postop TKA protocol Consult to Respiratory Therapy Evaluate & Treat Comment: Physician Instructions: Evaluate and treat Discharge provider: Yohana Burns PA-C Summary Hospital Course Discharge Diagnosis: Left knee osteoarthritis Hospital Course: Hospital Course: Procedure: LEft TKA Same procedure as scheduled: Yes Indications: left knee OA resistant to further conservative measures Surgeon: Manjinder Ramirez Rubber Washer: Isac Eubanks Click Yes if Unassisted: No Anesthesia Type: Spinal Operative Notes Findings: left knee OA, valgus alignment of left knee Closure Type: primary Specimen(s): none sent Prosthetic devices, grafts, tissues, transplants, or devices: M[employer]za [employer]hew Journey II size 8, left CR oxinium femur Journey size 7, left tibial base plate 35mm oval button, cooper II Size 7-8, left 9mm Journey II deep dish polytheylene Estimated Blood Loss (mL): 50 Tourniquet time (min): 52 Patient admitted to the hospital for left total knee arthroplasty. Patient consented to the same. Patient taken operating room on April 05, 2021 underwent left total knee arthroplasty. Patient back in his room recovering well as in stable condition. Patient will be maintained on standard total knee arthroplasty protocol. Discharge home today after physical therapy if safe for home environment. The patient had a hypertensive episode and therefore stayed another night. Status at Discharge Cognitive/behavioral status at discharge: oriented Functional status at discharge: uses cane/walker Overall status at discharge: patient is progressing back to baseline Exam Vital Signs (past 8 hours): - 04/07/21 04:00 04/07/21 08:16 Temperature 97.1 F L Pulse Rate 62 Respiratory Rate 16 Blood Pressure 123/80 166/103 H Pulse Oximetry 96 Oxygen Delivery Method Room Air Oxygen Flow Rate 0 Narrative Exam Narrative: Pleasant 76-year-old male sitting comfortably in his chair, no acute distress. Dressing is clean dry intact. Bilateral lower extremities with normal motor function, sensation is grossly intact to light touch bilaterally. Both legs are warm and dry. Bilateral calves are soft, nontender to palpation Objective Labs Result Diagrams: 04/06/21 15:35 Labs: Laboratory Results - last 24 hr 04/06/21 15:35 Hgb 13.1 L Hct 37.8 L PFSH Medical History Asthma Borderline diabetes Depression Glaucoma HLD (hyperlipidemia) HTN (hypertension) Hx of angiography (~2002) Impaired hearing Peripheral neuropathy Skin cancer Surgical History History of arthroplasty of right knee (01/23/11) History of arthroscopy of both knees History of colonoscopy History of surgery History of surgery History of surgery History of total left hip arthroplasty (08/01/20) Hx of bilateral cataract extraction Hx of hemorrhoidectomy S/P CABG x 4 (~2002) Social History household members: children Smoking Status: Former smoker alcohol intake: current Discharge Assessment & Plan Assessment and Plan Assessment: Patient is progressing as expected status post total knee arthroplasty Plan of Treatment: Weight-bearing as tolerated. The patient has oxycodone at home, which he will use sparingly. Otherwise he will use Tylenol and ibuprofen for pain management. Discharge home today in stable condition Discharge Plan Discharge Plan Patient Disposition: Home Provider Discharge Comment: Discharge home after physical therapy if safe for home environment Discharge orders & Medications Prescriptions: New acetaminophen 325 mg Tablet 650 mg PO TID Qty: 60 RF: 0 polyethylene glycol 3350 17 gram Powder In Packet 17 g PO DAILY PRN (Reason: Constipation) Qty: 14 RF: 0 aspirin 81 mg Tablet,Delayed Release (Dr/Ec) 81 mg PO BID Qty: 60 RF: 0 ibuprofen 400 mg Tablet 400 mg PO Q4HR Qty: 60 RF: 0 oxycodone 10 mg Tablet 10 mg PO Q3HR PRN (Reason: Pain, Severe (7-10)) Qty: 60 RF: 0 Continued travoprost 0.004 % Drops 1 drp EYE-BOTH BEDTIME Qty: 0 RF: 0 niacin 100 mg Tablet 200 mg PO DAILY Qty: 0 RF: 0 coenzyme Q10 [CoQ-10] 100 mg Capsule 100 mg PO DAILY Qty: 0 RF: 0 omega 6-jtf-qnb-fish oil [Fish Oil] 1,200 (144-216) mg Capsule 2 cap PO DAILY Qty: 0 RF: 0 albuterol sulfate 90 mcg/actuation Hfa Aerosol Inhaler 2 puff INHALATION Q4-6H PRN (Reason: Shortness Of Breath) Qty: 0 RF: 0 multivitamin Capsule 1 cap PO Q OTHER DAY Qty: 0 RF: 0 losartan 50 mg Tablet 50 mg PO DAILY RF: 0 Praluent Pen 75 mg/mL pen injector 75 mg SUBCUT Q2W RF: 0 docusate sodium [DOK] 100 mg Capsule 100 mg PO BID Qty: 60 RF: 0 tamsulosin [Flomax] 0.4 mg Capsule 0.4 mg PO DAILY Qty: 14 RF: 0 Discontinued aspirin 81 mg Tablet,Delayed Release (Dr/Ec) 162 mg PO DAILY Qty: 0 RF: 0 oxycodone 5 mg Tablet 5 mg PO Q3HR PRN (Reason: Pain, Moderate (4-6)) Qty: 60 RF: 0 acetaminophen 325 mg Tablet 650 mg PO TID Qty: 20 RF: 0 aspirin 81 mg Tablet,Delayed Release (Dr/Ec) 81 mg PO BID Qty: 30 RF: 0 Follow up/Referrals: Mikey Fonseca MD [Primary Care Provider] - Manjinder Ramirez MD [Physician] - (2 weeks) Diet/Activity/Treatments Diet: Diet as Tolerated Activity: Weight-bearing as tolerated Cold/Heat Therapy: Ice as needed Skin/Wound/Dressing Care Report to your healthcare provider any signs of infection, such as:: chills, fever, increased pain, unusual drainage and unusual redness Dressing: Keep dressing clean and dry, may remove Karlo wrap within 48-72 hours, leave dressing in place Visit Report/Discharge Packet Instructions: DI for Knee Replacement Stand Alone Forms: Surgery Discharge Discharge Data Primary Care Provider: Mikey Fonseca Attending Provider: Manjinder Ramirez
--- NOTE | 2021-04-07 10:33 | PT.IPTN ---
Current Diagnoses Unilateral primary osteoarthritis, left knee (04/06/21) Surgery Performed Operation Date: 04/05/21 12:15 Actual Procedures p Total Knee Arthroplasty(Left) - Manjinder Ramierz MD Physical Therapy Treatment Note M2 PT-IP Current Condition Start: 04/06/21 11:48 Freq: NEEDED Status: Active Protocol: Document 04/06/21 08:55 AB (Rec: 04/06/21 12:03 AB [id number]) Physical Therapy Current Condition Current Condition Evaluation Date 04/06/21 Treatment Diagnosis s/p LTKA; difficulty in walking Onset Date 04/05/21 Weight Bearing Status Weight Bearing Status Weight Bear as Tolerated Allowed Weight Bearing Amount (enter % LLE WBAT or #) (%) M3 PT-IP Subjective Start: 04/06/21 11:48 Freq: NEEDED Status: Active Protocol: Document 04/07/21 10:09 CLB (Rec: 04/07/21 11:21 CLB [id number]) Subjective Physical Therapy Visit Type Type Treatment Note Visit Start Time 10:09 Visit Stop Time 10:33 Total Visit Minutes 24 Number of ROENTGENOLOGY TEACHER Visits 2 Physical Therapy Visit Comments Patient Comments agreeable to do PT Therapy Pain Assessment Pain When Pain Assessed At Rest Pain Present Pain Present Pain Reported M4 PT-IP Mobility and Gait Start: 04/06/21 11:48 Freq: NEEDED Status: Active Protocol: Document 04/07/21 10:09 CLB (Rec: 04/07/21 11:21 CLB [id number]) PT-Transfer Assessment Sit to and From Stand Sit to and from Stand Standby Assistance,1 Person Assistance,Use of Upper Extremities Equipment Transfer Assistive Device Gait Belt,Front Wheeled Walker Transfers Transfer Destination Chair Transfer Technique ambulated Transfer Ability Level of Assist Standby Assistance,1 Person Assistance,Use of Upper Extremities Comments Mobility Comments BP in sitting 157/99, standing 169/106, standing after gait 178/103, sitting 164/91. Pt performed seated ther ex. Pt ambulated in toribio ~100ft with improved gait quality. Pt climbed stairs SBA. Pt returned to room and left in chair with all needs within reach. Gait Assessment Gait Gait Assistance Required: Standby Assistance,1 Person Assist Distance (Feet) 100 Able to Maintain Weight Bearing Status Yes During Gait Assistive Devices Assistive Device Gait Belt,Front Wheeled Walker Orthotic/Prosthetic Devices or Brace: No Gait Deviations General Gait Pattern Antalgic,Decreased Stride Length,Decreased Feet Clearance Factors Limiting Gait Function Factors Limiting Gait Function Decreased Activity Tolerance, Decreased Sensation,Decreased Strength,Limited Range of Motion,Pain,Poor Balance Stair Climbing Assessment Evaluation Level of Assist On Stairs Standby Assistance,1 Person Assistance Devices Stair Climbing Assistive Devices Left Railing Technique/Endurance Stair Climbing Direction Ascend and Descend Stair Climbing Technique Step to Step Number of Steps Climbed 3 Stair Climbing Set # Repetitions (reps) 1 PT-Balance Assessment Sitting Balance and Reactions Static Sitting Balance Ability Normal Dynamic Sitting Balance Ability Good Standing Balance and Reactions Static Standing Balance Ability Fair Dynamic Standing Balance Ability Fair Device Used FWW M5 PT-IP Objective Assessments Start: 04/06/21 11:48 Freq: NEEDED Status: Active Protocol: Document 04/06/21 08:55 AB (Rec: 04/06/21 12:03 AB [id number]) Orientation Orientation/Cognition Level of Alertness Alert Orientation Name,Age,Birthday,Month,Date, Year,Day of Week,Place, Situation Language Function Ability No Deficits Noted Safety Awareness Understands Safety Issues Memory Description No Deficits Noted Gross Range of Motion Lower Extremity ROM Assessment Left Impaired Impairments L knee flexion: ~ 70 deg L knee extension: ~ 10 deg less to 0 Strength Lower Extremity Strength Assessment Left Impaired Hip 4+/5 Knee 4-/5 Sensation Assessment Sensation Gross Sensation Right UE Impaired,Left UE Impaired,Left LE Impaired Sensation Description Numbness,Tingling Comments Sensation Comments neuropathy BUE/LE per pt Muscle Tone Muscle Tone WNL Yes M6 PT-IP Treatment Start: 04/06/21 11:48 Freq: NEEDED Status: Active Protocol: Document 04/07/21 10:09 CLB (Rec: 04/07/21 11:21 CLB [id number]) Physical Therapy Treatment Exercises Exercises Heel Slides,Straight Leg Raises,Seated Knee Flexion/ Extension Education Education Provided Precautions,Weight Bearing Status,Post-Op Packet,Safety M7 PT-IP Assessment and Plan Start: 04/06/21 11:48 Freq: NEEDED Status: Active Protocol: Document 04/07/21 10:09 CLB (Rec: 04/07/21 11:21 CLB [id number]) PT Summary Assessment and Plan Potential Rehabilitation Potential Good Status of Condition at Evaluation Evolving Summary Impairments Pain,ROM,Strength,Balance, Coordination,Sensation,Tone, Cognition,Bed Mobility, Transfers,Gait,Activity Tolerance Progress Towards Goals Progressing Toward Goals Assessment Summary BP in sitting 157/99, standing 169/106, standing after gait 178/103, sitting 164/91. Pt with improved gait quality and steadiness. Pt is SBA for all mobility. Pt seems able to d/ c home with assist when medically stable. Goals Bed Mobility Goal Independent Transfer Goal Independent,Front Wheeled Walker Gait Goal Independent,Front Wheel Walker Gait Distance 200 Other Goals up/down 3 steps 1 rail SBA Days to Meet Goals 5 Frequency of Treatment Frequency Of Treatment Twice a Day Treatment Plan Physical Therapy Treatment Plan Bed Mobility Training,Transfer Training,Gait Training, Therapeutic Exercise,Balance Retraining,Post Op Education, Discharge Planning,Hot or Cold Pack,Neuromuscular Re-ed, Coordination Retraining,Manual Therapy Precautions Other Precautions BP; LLE WBAT Recommendations To Nursing Amount of Assist Needed 1 Person Assist Discharge Recommendations PT Discharge Recommendations Home with Assistance, Outpatient PT Transportation Needs at Discharge Private Vehicle
--- NOTE | 2021-04-07 12:28 | CM.DPC ---
DCP: continued: case received and dc order noted. Pt is doing well today and will go home as per plan to [place].
--- NOTE | 2021-04-07 14:30 | PC.NURSE ---
Pt is dressed and ready for discharge back to [facility] with friend. HL removed. Went over d/c instructions with Pt - discussed d/c meds, time of last dose, reviewed stroke education, discussed drinking alcohol with narcotics is not recommended. Pt is a daily drinker of one whiskey each evening when he goes to bed-there is concern for stopping his habitual daily drink with repurcussions of withdrawal-Pt states he will not drink more than one drink and will not have any alcohol within 6-8 hours of taking oxycodone. Encouraged Pt to increase water intake to prevent constipation or dehydration. Discussed attempting to manage his pain as able with Tylenol and Ibuprofen. Reminded Pt that he is not to exceed 3000mg of tylenol in 24 hours secondary to potential liver damage. Reminded Pt to get up slowly from chair or bed to prevent weakness or dizziness. Pt states he is aware of how that feels and will sit before that happens. Pt denies further questions and was taken out via w/c by GUM ROLLING MACHINE TENDER to POV with friend and all belongings. Pt was reminded that he is not to drink alcohol or drive while he is taking narcotics.
== END 2021-04-07 14:45 | disposition home or self-care (01) ==
LOC: OR 09:16 → AC 09:16
PROVIDERS: Physician Assistant Medical; Admitting Provider Orthopaedic Surgery Adult Reconstructive Orthopaedic Surgery; Family Provider Family Medicine Geriatric Medicine; PCP Family Medicine; Referring Provider Orthopaedic Surgery Adult Reconstructive Orthopaedic Surgery; Visit Provider Orthopaedic Surgery Adult Reconstructive Orthopaedic Surgery
PROC: 0SRD0JZ Replacement of Left Knee Joint with Synthetic Substitute, Open Approach (ICD-10-PCS; CPT 27447; principal; 2021-04-05 12:15)
DX: M17.12 Unilateral primary osteoarthritis, left knee (principal); M21.062 Valgus deformity, not elsewhere classified, left knee; I10 Essential (primary) hypertension; G47.33 Obstructive sleep apnea (adult) (pediatric); I25.10 Atherosclerotic heart disease of native coronary artery without angina pectoris; Z95.1 Presence of aortocoronary bypass graft; I95.9 Hypotension, unspecified
CPT/HCPCS: 27447; 36415; 64450; 73560; 85014; 85018; 93005; 93010; 94762; 97110; 97116; 97162; 97530; C1776; G0378; J0690; J1885; J2250; J2270; J3010

== ENCOUNTER → 2021-05-05 10:17 | Outpatient (CLI) | payer MEDICARE, BC, SELFPAY ==
[2021-04-05 18:51] VITALS: BMI 27.4
--- NOTE | 2021-05-05 | DI.US.S_ITS ---
PROCEDURE: US PERIPH VENOUS LOW EXTREM LT INDICATIONS: RULE OUT DEEP VEIN THROMBOSIS. POST TOTAL KNEE REPLACEMENT TECHNIQUE: Real-time imaging, as well as color and pulse Doppler interrogation, were performed of the lower extremity deep veins from the inguinal ligament to the popliteal fossa. COMPARISON: None. FINDINGS: The common femoral, femoral and popliteal veins are normally compressible, and free of intraluminal thrombus. Color and pulse Doppler demonstrate normal phasic intraluminal flow. There is normal augmentation response to distal compression maneuver. Within the popliteal fossa from the medial the midportion of the popliteal fossa there is a complex fluid collection seen without abnormal vascularity that measures 7.2 x 7.5 x 7 cm. Mild soft tissue edema can be seen involving the popliteal fossa. IMPRESSION: Negative for deep venous thrombosis. Hematoma versus complex Johansen's cyst noted within the popliteal fossa. Dictated by: Luciano Calderon M.D. on 05/05/2021 at 9:55 Approved by: Luciano Calderon M.D. on 05/05/2021 at 9:56
== END ==
PROVIDERS: Family Provider Family Medicine Geriatric Medicine; PCP Family Medicine; Referring Provider Orthopaedic Surgery Adult Reconstructive Orthopaedic Surgery; Visit Provider Orthopaedic Surgery Adult Reconstructive Orthopaedic Surgery
DX: M17.12 Unilateral primary osteoarthritis, left knee (principal)
CPT/HCPCS: 93971

== ENCOUNTER → 2021-10-27 14:25 | Outpatient (CLI) | payer MEDICARE, BC, SELFPAY ==
[2021-04-05 18:51] VITALS: BMI 27.4
--- NOTE | 2021-10-27 14:27 | DI.ECHO.S_ITS ---
[facility] +---------+ [facility] +---------+ : : [address] : : : : [id number] : : : : Phone: [phone]+ Echocardiogram Report + + :Name: DULCE LAGOS Study Date: 10/27/2021 Height: 66 in : :[facility] ReadingLocation: Weight: 165 lb : : Gender: Male BSA: 1.8 m2 : :: 1945 Age: 76 yrs BP: 148/92 mmHg: :Reason For Study: DYSPNEA : : Performed By: Víctor Cardona : :Referring: KERI MAI : + + Interpretation Summary The left ventricle is normal in size. The ejection fraction is estimated to be 55-60%. The right ventricle is mildly dilated. The right ventricular systolic function is normal. There is mild tricuspid regurgitation. The right ventricular systolic pressure is estimated to be at least 28 mmHg based on an estimated right atrial pressure of 3 mm Hg. The ascending aorta is mild-moderately enlarged. Mild atherosclerotic plaque(s) in the aortic arch. Procedure: A two-dimensional transthoracic echocardiogram with color flow and Doppler was performed. The study quality was technically adequate. There is no prior echocardiogram noted for this patient. The patient was in normal sinus rhythm during the exam. Left Ventricle: The left ventricle is normal in size. There is normal left ventricular wall thickness. There is no thrombus. The ejection fraction is estimated to be 55-60%. There are no focal wall motion abnormalities. MV E/A: 1.2 Med Peak E' Av: 5.7 cm/sec E/E' med: 10.4. Right Ventricle: The right ventricle is mildly dilated. The right ventricular systolic function is normal. Atria: Both atria are moderately dilated. There is no Doppler evidence for an atrial septal defect. Mitral Valve: There is mild mitral annular calcification. The mitral valve leaflets are slightly calcified. There is mild mitral regurgitation. Aortic Valve: The aortic valve is trileaflet. The aortic valve opens well. There is discrete nodular thickening of the non- coronary cusp. The aortic valve is mildly calcified. There is no aortic valve stenosis. There is trace aortic regurgitation. Tricuspid Valve: There is tricuspid annular calcification. There is mild tricuspid regurgitation. The right ventricular systolic pressure is estimated to be at least 28 mmHg based on an estimated right atrial pressure of 3 mm Hg. Pulmonic Valve: The pulmonic valve is not well seen, but is grossly normal. There is mild pulmonic regurgitation. Great Vessels: The aortic root is borderline dilated. The ascending aorta is mild-moderately enlarged. Mild atherosclerotic plaque(s) in the aortic arch. The pulmonary artery is normal size. The IVC is of normal diameter and collapses greater than 50% with a sniff. This suggests a low right atrial pressure of 3 mm Hg. Pericardium/ Pleura There is no pericardial effusion. There is no pleural effusion. MMode/2D Measurements & Calculations LVIDd: 3.7 cm LVOT diam: 2.3 cm LVIDs: 2.5 cm Ao root diam: 4.0 cm FS: 32.3 % asc Aorta Diam: 4.2 cm EPSS: 0.31 cm Ao Arch Diam (Prox Trans): 2.9 cm IVSd: 0.95 cm LVPWd: 0.86 cm LV louie. diameter/BSA (cm/m^2): 2.0 LV sys. diameter/BSA (cm/m^2): 1.4 LA A2 area: 25.9 cm2 RA long axis: 6.2 cm LA A4 area: 23.5 cm2 RA area: 24.6 cm2 LA length (vol): 6.4 cm RA vol: 83.1 ml LA vol: 80.4 ml RA : 45.1 ml/m2 LA vol index: 43.6 ml/m2 IVC diam: 1.2 cm RVD1 (basal): 4.2 cm RVD2 (mid): 4.3 cm TAPSE: 1.6 cm Doppler Measurements & Calculations Ao V2 max: 128.6 cm/sec LVOT Max Av: 121.7 cm/sec Ao V2 mean: 93.4 cm/sec LV V1 max P.9 mmHg Ao max P.6 mmHg LV V1 VTI: 24.7 cm Ao mean P.8 mmHg SARAY(I,D): 3.5 cm2 Ao V2 VTI: 29.9 cm SARAY(V,D): 4.1 cm2 sev ratio: 0.83 SARAY indexed to BSA (cm^2/m^2): 1.9 MV E max av: 59.8 cm/sec TR max av: 250.2 cm/sec MV A max av: 50.7 cm/sec TR max P.0 mmHg MV E/A: 1.2 PA V2 max: 65.9 cm/sec Med Peak E' Av: 5.7 cm/sec PA V2 mean: 50.0 cm/sec E/E' med: 10.4 PA mean P.1 mmHg Lat Peak E' Av: 8.5 cm/sec PA pr(Accel): 27.6 mmHg E/E' lat: 7.0 E/e' average: 8.7 MV dec time: 0.17 sec SV(LVOT): 105.6 ml Reading Physician:05:37 PM
== END ==
PROVIDERS: Family Provider Family Medicine Geriatric Medicine; PCP Family Medicine; Referring Provider Family Medicine; Visit Provider Family Medicine
DX: I08.1 Rheumatic disorders of both mitral and tricuspid valves (principal); I77.89 Other specified disorders of arteries and arterioles; R06.00 Dyspnea, unspecified
CPT/HCPCS: 93306

== ENCOUNTER → 2022-04-18 09:04 | Outpatient (CLI) | payer MEDICARE, BC, SELFPAY ==
[2021-04-05 18:51] VITALS: BMI 27.4
[2022-04-18 11:31] LABS: COVID19 -Nasal RAPID Negative (Negative)
== END ==
PROVIDERS: Family Provider Family Medicine Geriatric Medicine; PCP Family Medicine; Referring Provider Orthopaedic Surgery; Visit Provider Orthopaedic Surgery
DX: Z20.822 Contact with and (suspected) exposure to COVID-19 (principal)
CPT/HCPCS: 87635; C9803

== ENCOUNTER 2022-04-19 06:17 | Day surgery (SDC) | payer MEDICARE, BC, SELFPAY ==
[2021-04-05 18:51] VITALS: BMI 27.4
[2022-04-09 09:35] VITALS: BMI 26.6
[2022-04-19] VITALS (14 sets, daily range): BP systolic 95–142; BP diastolic 59–92; PULSE 54–95; RESP 12–18; TEMP 35.6–36.4; O2SAT 94–99; BMI 26.6; BMI 29.3
--- NOTE | 2022-04-19 06:00 | DI.RAD.S_ITS ---
PROCEDURE: XR HIP W PEL IF DONE RT 2V INDICATIONS: inner op right TECHNIQUE: Intraoperative fluoroscopic images obtained. COMPARISON: [facility], CR, XR HIP W PEL IF DONE LT 2V, 08/02/2020, 9:18. [facility], CR, XR HIP W PEL IF DONE LT 2V, 08/01/2020, 15:21. FINDINGS: 4 intraoperative fluoroscopic images obtained from the right hip arthroplasty. A left hip arthroplasty is also present as before. IMPRESSION: Intraprocedural fluoroscopy was provided for guidance and anatomical localization. Please see the procedure report for further details. Dictated by: Kaushik Geronimo M.D. on 04/19/2022 at 10:48 Approved by: Kaushik Geronimo M.D. on 04/19/2022 at 10:53
[2022-04-19] MEDS: PREGABALIN 75 MG CAPSULE PO (07:21)
[2022-04-19] MEDS: ACETAMINOPHEN 325 MG TABLET 975 MG PO (07:21)
[2022-04-19] MEDS: CELECOXIB 200 MG CAPSULE PO (07:21)
[2022-04-19] MEDS: LACTATED RINGERS 1,000 ML 42 ML IV ×2 (07:24→09:29)
[2022-04-19] MEDS: VANCOMYCIN 1,000 MG/200 ML PIGGYBACK 200 MG IV (07:25)
--- NOTE | 2022-04-19 07:32 | P.OP_ITS ---
Operative Date/Time/Diagnoses Date of procedure: 04/19/22 Time of procedure: 08:00 Pre-op diagnosis: right hip OA Post-op diagnosis: same Procedure & Clinicians Procedure: Right total hip arthroplasty anterior approach Same procedure as scheduled: Yes Indications: The patient has had progressively worsening left hip pain with radiographic ch anges consistent with arthritis. Non-operative management has failed and the patient has requested total hip replacement. The risks, benefits and alternatives to surgery were discussed with the patient prior to proceeding. Risks discussed included, but were not limited to, failure to relieve pain, leg length discrepancy, dislocation, stiffness, infection, nerve damage, deep venous thrombosis, pulmonary embolism, stroke, coma, heart attack, permanent paralysis and , as well as the potential need for eventual revision of the prosthetic. Surgeon: Nayla Mendoza Plastic Parts Fabricator: Yohana Burns Anesthesia Type: General and Spinal Operative Notes Findings: Severe right hip osteoarthritis, good stability, adequate Closure Type: primary Specimen(s): none sent Prosthetic devices, grafts, tissues, transplants, or devices: Size 56 R3 cup, Mendoza and nephew size 8 high offset anthology, +0 Oxinium head, two 6.5 mm screws Estimated Blood Loss (mL): 250 Blood products transfused: none Procedure in detail: The patient was brought to the operating room. Patient was carefully positioned in the supine position. Time-out was performed and antibiotics were given. Anesthesia was induced. He was positioned in the on the table in order to allow hyperextension of the hip. The right lower extremity was prepped and draped in a standard sterile fashion. An anterior right hip incision was made 1 fingerbreadth lateral to the anterior superior iliac spine and extended distally towards the greater trochanter. Dissection was carried out through skin and subcutaneous tissues. Superficial hemostasis was achieved. The fascia over the tensor fascia nikole was defined and incised with a knife. Two Allis clamps were used to grasp the fascia. Tensor fascia nikole was retracted laterally. A gelpi retractor was placed. Dissection was carried out down along the neck. The circumflex vessels were carefully identified and cauterized with the Aqua Mantis. There was good visualization of the femoral neck. A Cobra was placed superior to the neck and the gluteus fibers were carefully stripped from that superior aspect of the capsule. A 2nd retractor was placed along the inferior aspect of the neck. The rectus insertion along the capsule was partially released. A 3rd retractor that was then gently placed over the rim of the acetabulum under the rectus. Capsule was carefully incised and released from the intertrochanteric line circumferentially superior to the mid sagittal line and inferiorly to the mid sagittal line until the lesser trochanter was palpable. A tag stitch was placed both in the superior and inferior limb of the capsular insertion. Along the acetabulum capsule was also released up to the mid sagittal 12:00 position. A portion of the labrum was resected. A saw was used to perform an osteotomy at the level of the intertrochanteric line and the junction of the superior femoral neck leaving approximately 1 finger breath of residual inferior neck above the lesser trochanter. A 2nd cut was made along the femoral neck at the base of the head and a napkin ring of neck was removed. Corkscrew was placed in the femoral head and the head was removed without difficulty. Retractors were then repositioned around the acetabulum. Residual labrum was resected and additional osteophytes were removed. A reamer that was 4 mm below the templated size was placed by hand in the acetabulum and it was reamed to centralize the acetabulum. It was then reamed up to 2 under the templated size and fluoroscopy was brought in to confirm the position of the reaming and depth of reaming. I reamed 1 under the anticipated size. A trial cup was placed and noted that it was appropriately sized and fluoroscopy confirmed position and depth. The component was open and inserted without difficulty fluoroscopic imaging was used to confirm that the cup had been adequately seated and was well positioned. It was further stabilized with 2 screws. Neutral poly liner was placed. The cup was tested and noted to be stable. Attention was then directed to the femur. The femur was gently hyperextended additional capsular release was performed as needed in order to allow adequate visualization of the proximal femur with elevation of the femur. Patient was p laced in a hyperextended slightly adducted position with maximum external rotation. Box osteotome was used to check for any residual neck as well as sclerotic bone along the trochanter. Dagmar pepper was placed in the femur. Additional broaching was performed. Canal finder was used to determine the alignment of the canal and position. Size 1 broach was placed. The canal was then appropriately broached up to the templated size as long as there was adequate stability of the broach and serial advancement of the broach without excessive impingement. Specific attention was directed at avoiding varus attempting to direct the distal aspect of the broach more anteriorly and avoiding excessive anteversion. Trial reduction showed acceptable range of motion, good stability, no posterior impingement, judaism of leg length and appropriate lateral shuck. I also hyperflexed the hip and checked that there was no impingement anteriorly and there was good stability with flexion, adduction and internal rotation. Marcaine and Exparel were injected. The stem was placed without difficulty. Repeat trial reduction and x-ray showed acceptable overall position, length, and no evidence of the femoral fracture. Final head was placed. Wound was meticulously irrigated with normal saline. The hip was reduced and additional Exparel and Marcaine were injected. The capsule was closed with interrupted nonabsorbable sutures. The fascia of the tensor was closed with interrupted and running Vicryl. No drain was placed. Any tensor fascia nikole muscle that appeared to be contused or injured which was a minimal amount was carefully resected. Capsule around the tensor was injected with Exparel and Marcaine. The skin was closed with barbed stitches for the subcutaneous tissue and skin. We also used surgical glue. The wound was dressed sterilely. Brief Betadine soak was also used and was meticulously irrigated with normal saline. Patient was transferred to recovery room in satisfactory condition. Complications: none Post-operative Condition: stable Disposition: Acute Care Plan for aftercare: The patient will be maintained on a standard total hip replacement protocol with weight bearing as tolerated and anterior hip precautions. The patient will re ceive Aspirin and sequential compression devices for DVT prophylaxis. The patient will be discharged home when safe for the home environment.
--- NOTE | 2022-04-19 07:32 | PM.PREOP ---
Pre-operative Note COVID-19 COVID-19 status: Negative Interval Note History & Physical reviewed/Exam performed by Physician: Yes Changes to H&P: No
[2022-04-19] MEDS: CEFAZOLIN 2 GM/100 ML PREMIX 100 ML IV ×3 (08:11→23:44)
[2022-04-19] MEDS: TRANEXAMIC ACID 1,000 MG VIAL 1000 MG INJ ×2 (08:15→10:15)
--- NOTE | 2022-04-19 08:37 | SUR.OPER ---
Supine on padded [place] table with bilateral legs secured in padded positioning boots and suspended in positioning spars, operative leg in traction per surgeon. Head on one pillow. Arm on non-operative side secured on padded armboard <90 degrees abduction. Arm on operative side padded and resting across chest then secured with tape over sheet. Padded perineal post in place per surgeon.
[2022-04-19] MEDS: BUPIVACAINE LIPOSOME 266 MG/20 ML VIAL INJ (08:46)
[2022-04-19] MEDS: BUPIVACAINE 0.5% W/ EPI (PF) 30 ML VIAL INJ (08:47)
--- NOTE | 2022-04-19 11:00 | DI.RAD.S_ITS ---
PROCEDURE: XR HIP W PEL IF DONE RT 2V INDICATIONS: RIGHT ANTERIOR HIP TECHNIQUE: AP view of the lower pelvis and lateral view of the right hip acquired. COMPARISON: [facility], LOC, XR HIP W PEL IF DONE RT 2V, 04/19/2022, 9:32. [facility], CR, XR HIP W PEL IF DONE LT 2V, 08/02/2020, 9:18. FINDINGS: Bones: Patient is status post right hip arthroplasty, with hardware components in expected positions. The hip joint appears congruent. The visualized bony structures appear intact. A left hip arthroplasty is also present. Soft tissues: Overlying postoperative changes are noted. No suspicious soft tissue densities. IMPRESSION: Postsurgical changes from right hip arthroplasty without definite radiographic evidence of acute complication. Dictated by: Kaushik Geronimo M.D. on 04/19/2022 at 15:09 Approved by: Kaushik Geronimo M.D. on 04/19/2022 at 15:12
--- NOTE | 2022-04-19 11:20 | SUR.PHASEI ---
Report called to Saravanan LARSEN and opportunity for questions given. Pt being transferred to room 204. Pt updated on plan of care and is agreeable.
[2022-04-19] MEDS: IBUPROFEN 400 MG TABLET PO ×3 (11:49→23:44)
[2022-04-19] MEDS: ACETAMINOPHEN 325 MG TABLET 650 MG PO ×3 (11:49→23:44)
[2022-04-19] MEDS: LACTATED RINGERS 1,000 ML 125 ML IV (11:50)
[2022-04-19] MEDS: OXYCODONE IR 5 MG TABLET PO (15:57)
--- NOTE | 2022-04-19 16:59 | PT.IIE ---
Current Diagnoses Unilateral primary osteoarthritis, right hip (04/19/22) Surgery Performed Operation Date: 04/19/22 07:45 Actual Procedures p Total Hip Arthroplasty/Anterior Approach(Right) - Nayla Mendoza MD Surgical History (Last Updated 04/09/22 @ 10:23 by Chelsea Esqueda RN) History of arthroplasty of left knee (04/05/21) History of arthroplasty of right knee (01/23/11) History of arthroscopy of both knees History of colonoscopy History of ear surgery (~01/2022) History of surgery History of surgery History of surgery History of total left hip arthroplasty (08/01/20) Hx of bilateral cataract extraction Hx of hemorrhoidectomy S/P CABG x 4 (~2002) Medical History (Last Reviewed 04/07/21 @ 08:32 by Yohana Burns PA-C) Asthma Borderline diabetes Depression Glaucoma HLD (hyperlipidemia) HTN (hypertension) Hx of angiography (~2002) Impaired hearing Peripheral neuropathy Skin cancer Physical Therapy Inpatient Evaluation/Re-Eval M1 PT/OT-IP Prior Functional Status Start: 04/19/22 16:08 Freq: NEEDED Status: Active Protocol: Document 04/19/22 16:59 AW (Rec: 04/19/22 17:26 AW [id number]) Medical Review Prior Functional Status Medical History Reviewed Yes Communication Pt is slightly [place]. He is an effective verbal communicator. Mobility and Gait Pt has been increasingly- reliant on SPC due to right hip pain. He notes his L PATY has felt unstable due to hardware shifting but no fracture identified and no restrictions on weightbearing or activity. Activities of Daily Living and IADL's Independent. Prior Functional Level (Other details) Pt reports falls frequency has decreased significantly since L PATY (Jul 2020) and L TKA ( Mar 2021). Social History Household Members children Living Arrangements House Number of Floors (Floors) Two Floors Number of Stairs To Enter/Railing? 3 VIET with wide B rails. Pt stays on the order entry. Home Environment Standard Height Toilet,Walk in Shower Home Equipment Front Wheel Walker,Straight Cane,Shower Seat without Backrest,Long Handled Sponge Employment Status Retired Additional Social History Comment Pt lives on [address] with his 40-year old son, Donn. Son has Aspergers. He is able to assist with no physical limitations. Pt will have friend pick him up and drive to the [facility] at discharge. M2 PT-IP Current Condition Start: 04/19/22 16:08 Freq: NEEDED Status: Active Protocol: Document 04/19/22 16:59 AW (Rec: 04/19/22 17:26 AW [id number]) Physical Therapy Current Condition Current Condition Evaluation Date 04/19/22 Treatment Diagnosis s/p R PATY with anterior approach; difficulty in walking Onset Date 04/19/22 M3 PT-IP Subjective Start: 04/19/22 16:08 Freq: NEEDED Status: Active Protocol: Document 04/19/22 16:59 AW (Rec: 04/19/22 17:26 AW [id number]) Subjective Physical Therapy Visit Type Type Initial Evaluation Visit Start Time : Visit Stop Time 16:59 Total Visit Minutes 37 Physical Therapy Visit Comments Patient Comments Pt is willing to participate with PT Therapy Pain Assessment Pain When Pain Assessed During Mobility Pain Present Pain Present Denied Pain M4 PT-IP Mobility and Gait Start: 04/19/22 16:08 Freq: NEEDED Status: Active Protocol: Document 04/19/22 16:59 AW (Rec: 04/19/22 17:26 AW [id number]) PT-Bed Mobility Assessment Supine to Sit Supine to Sit Standby Assistance PT-Transfer Assessment Sit to and From Stand Sit to and from Stand Contact Guard Assistance,Use of Upper Extremities Equipment Transfer Assistive Device Straight Cane,Front Wheeled Walker Orthotic/Prosthetic Devices or Brace: No Transfers Transfer Destination Chair,Toilet Transfer Technique ambulated with FWW Transfer Ability Level of Assist Contact Guard Assistance Comments Mobility Comments Pt was lying in bed as PT arrived. BP 122/75 HR 56. PT reviewed precautions with pt who was well-acquainted from L PATY. He was able to exit the bed to the right side without extending his hip SBA. He stood CGA and used FWW to ambulate around the bed and transfer to the chair. He stood again and walked to the toilet, sitting to void. CGA to stand from the toilet. Pt walked back to the chair with FWW CGA. Pt denied lightheadedness throughout mobility. BP after activity was 123/78 HR 52. Pt was left in the recliner with call light and tray table in reach. Fresh ice was applied to anterior hip. Pt agreed to call for all mobility needs. Gait Assessment Gait Gait Assistance Required: Contact Guard Assist Distance (Feet) 25 Able to Maintain Weight Bearing Status Yes During Gait Assistive Devices Assistive Device Gait Belt,Front Wheeled Walker Orthotic/Prosthetic Devices or Brace: No Gait Deviations General Gait Pattern Antalgic,Decreased Stride Length,Decreased Feet Clearance,Step-to Gait Factors Limiting Gait Function Factors Limiting Gait Function Decreased Sensation,Decreased Strength,Limited Range of Motion Comments Gait Comments See mobility comments for details. Pt was cautious and mindful about his precautions. Stair Climbing Assessment Comments Stair Climbing Comments Not assessed on eval. PT-Balance Assessment Sitting Balance and Reactions Static Sitting Balance Ability Normal Dynamic Sitting Balance Ability Normal Standing Balance and Reactions Static Standing Balance Ability Good Dynamic Standing Balance Ability Good Device Used FWW M5 PT-IP Objective Assessments Start: 04/19/22 16:08 Freq: NEEDED Status: Active Protocol: Document 04/19/22 16:59 AW (Rec: 04/19/22 17:26 AW [id number]) Orientation Orientation/Cognition Level of Alertness Alert Orientation Name,Day of Week,Place, Situation Language Function Ability No Deficits Noted Safety Awareness Understands Safety Issues Memory Description No Deficits Noted Gross Range of Motion Lower Extremity ROM Assessment Right Impaired Strength Lower Extremity Strength Assessment Right Impaired Hip NT Knee 4/5 Ankle 4+/5 Comments Strength Comments LLE grossly 4+/5 Sensation Assessment Sensation Gross Sensation Right UE Impaired,Left UE Impaired,Right LE Impaired, Left LE Impaired Light Touch Impaired Proprioception (Position) Impaired Sensation Description Numbness,Tingling,[place],Burning Comments Sensation Comments 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 Hands are also affected. M6 PT-IP Treatment Start: 04/19/22 16:08 Freq: NEEDED Status: Active Protocol: Document 04/19/22 16:59 AW (Rec: 04/19/22 17:26 AW [id number]) Physical Therapy Treatment Exercises Exercises Ankle Pumps,Gluteal Sets,Quad Sets,Heel Slides Education Education Provided Precautions,Weight Bearing Status,Post-Op Packet,Safety M7 PT-IP Assessment and Plan Start: 04/19/22 16:08 Freq: NEEDED Status: Active Protocol: Document 04/19/22 16:59 AW (Rec: 04/19/22 17:26 AW [id number]) PT Summary Assessment and Plan Potential Rehabilitation Potential Excellent Status of Condition at Evaluation Evolving Summary Impairments Pain,ROM,Strength,Balance, Sensation,Bed Mobility, Transfers,Gait Assessment Summary Isac is a 77 yo man seen for PT evaluation on POD0 following R PATY with anterior approach. He is modified independent at baseline with use of SPC due to R hip pain. He has history of L TKA and L anterior PATY. Pt has good understanding of his precautions. He is not limited by pain on evaluation and required no more than CGA for ambulation and transfers with FWW. PT anticipates pt will be safe to discharge home with assist and outpatient PT ( scheduled to begin next week) once medically stable. Goals Bed Mobility Goal Independent Transfer Goal Independent,Front Wheeled Walker Gait Goal Independent,Front Wheel Walker Gait Distance 200 Other Goals - up/down 3 steps with unilateral rail SBA Days to Meet Goals 2 Frequency of Treatment Frequency Of Treatment Twice a Day Treatment Plan Physical Therapy Treatment Plan Bed Mobility Training,Transfer Training,Gait Training, Therapeutic Exercise,Balance Retraining,Post Op Education, Discharge Planning,Hot or Cold Pack,Neuromuscular Re-ed Other Recommendations and Next Treatment progress gait; review ther ex; Focus stairs Precautions Anterior Hip Precautions No Hip Extension,No Hip External Rotation Weight Bearing Status Weight Bearing Status Weight Bear as Tolerated Recommendations To Nursing Amount of Assist Needed 1 Person Assist Discharge Recommendations PT Discharge Recommendations Home with Assistance, Outpatient PT Transportation Needs at Discharge Private Vehicle
[2022-04-19] MEDS: DOCUSATE 100 MG CAPSULE PO (20:55)
[2022-04-19] MEDS: ASPIRIN EC 81 MG TABLET PO (20:55)
[2022-04-19] MEDS: hydroCHLOROthiazide 25 MG TABLET PO (23:52)
[2022-04-19] MEDS: LOSARTAN 50 MG TABLET 100 MG PO (23:52)
[2022-04-20 00:16] VITALS: BP 127/78; PULSE 60; RESP 16; TEMP 36.2; O2SAT 97
[2022-04-20 04:00] VITALS: BP 128/74; PULSE 58; RESP 16; TEMP 36.3; O2SAT 95
[2022-04-20] MEDS: IBUPROFEN 400 MG TABLET PO ×2 (05:40→11:01)
[2022-04-20] MEDS: ACETAMINOPHEN 325 MG TABLET 650 MG PO ×2 (05:41→09:21)
--- NOTE | 2022-04-20 06:24 | PC.NURSE ---
Patient complaining of bladder, feeling full. Bladder scan at 0600 showed 572mL in the bladder. Straight catheter inserted at 0600 and removed 1400ml of urine.
--- NOTE | 2022-04-20 07:55 | P.DS_ITS ---
History of Present Illness History of Present Illness Date Patient Seen: 04/20/22 Time Patient Seen: 07:55 Chief complaint: OPB Narrative: Operative Date/Time/Diagnoses Date of procedure: 04/19/22 Time of procedure: 08:00 Pre-op diagnosis: right hip OA Post-op diagnosis: same Procedure & Clinicians Procedure: Right total hip arthroplasty anterior approach Same procedure as scheduled: Yes Indications: The patient has had progressively worsening left hip pain with radiographic changes consistent with arthritis. Non-operative management has failed and the patient has requested total hip replacement. The risks, benefits and alternatives to surgery were discussed with the patient prior to proceeding. Risks discussed included, but were not limited to, failure to relieve pain, leg length discrepancy, dislocation, stiffness, infection, nerve damage, deep venous thrombosis, pulmonary embolism, stroke, coma, heart attack, permanent paralysis and , as well as the potential need for eventual revision of the prosthetic . Surgeon: Nayla Mendoza Jacquard Plate Maker: Yohana Burns Anesthesia Type: General and Spinal Operative Notes Findings: Severe right hip osteoarthritis, good stability, adequate Closure Type: primary Specimen(s): none sent Prosthetic devices, grafts, tissues, transplants, or devices: Size 56 R3 cup, Mendoza and nephew size 8 high offset anthology, +0 Oxinium head, two 6.5 mm screws Estimated Blood Loss (mL): 250 Blood products transfused: none Discharge Providers Provider Primary care physician: Mikey Fonseca MD Consults: 04/09/22 10:34 Consult to Anesthesiology Routine Comment: Consulting Provider: Anesthesiologist Reason for consultation: [facility]/surgeon office requesting re: 1st degree AV block, hx CABG 04/19/22 06:00 Consult to Anesthesiology Routine Comment: Consulting Provider: Anesthesiologist Reason for consultation: Regional block for post operative pain control 04/19/22 11:22 Consult to Discharge Planning Routine Comment: Consult to Physical Therapy Evaluate & Treat Comment: Physician Instructions: post op PATY protocol Consult to Respiratory Therapy Evaluate & Treat Comment: Physician Instructions: Evaluate and treat Discharge provider: Kerry Pratt PA-C Exam Vital Signs (past 8 hours): - 04/20/22 00:16 04/20/22 04:00 Temperature 97.1 F L 97.4 F L Pulse Rate 60 58 L Respiratory Rate 16 16 Blood Pressure 127/78 128/74 Pulse Oximetry 97 95 Oxygen Flow Rate 0 0 Oxygen Delivery Method Room Air Oxygen Flow Rate 0 PFSH Medical History Asthma Borderline diabetes Depression Glaucoma HLD (hyperlipidemia) HTN (hypertension) Hx of angiography (~2002) Impaired hearing Peripheral neuropathy Skin cancer Surgical History (Updated 04/09/22 @ 10:23 by Chelsea Esqueda RN) History of arthroplasty of left knee (04/05/21) History of arthroplasty of right knee (01/23/11) History of arthroscopy of both knees History of colonoscopy History of ear surgery (~01/2022) History of surgery History of surgery History of surgery History of total left hip arthroplasty (08/01/20) Hx of bilateral cataract extraction Hx of hemorrhoidectomy S/P CABG x 4 (~2002) Social History household members: children Smoking Status: Former smoker alcohol intake: current Discharge Plan Discharge orders & Medications Prescriptions: No Action travoprost 0.004 % Drops 1 drp EYE-BOTH BEDTIME Qty: 0 niacin 100 mg Tablet 500 mg PO DAILY Qty: 0 coenzyme Q10 [CoQ-10] 100 mg Capsule 100 mg PO DAILY Qty: 0 omega 1-dyj-pvr-fish oil [Fish Oil] 1,200 (144-216) mg Capsule 2 cap PO DAILY Qty: 0 albuterol sulfate 90 mcg/actuation Hfa Aerosol Inhaler 2 puff INHALATION Q4-6H PRN (Reason: Shortness Of Breath) Qty: 0 multivitamin Capsule 1 cap PO Q OTHER DAY Qty: 0 Praluent Pen 75 mg/mL pen injector 75 mg SUBCUT Q2W docusate sodium [DOK] 100 mg Capsule 100 mg PO BID Qty: 60 0RF polyethylene glycol 3350 17 gram Powder In Packet 17 g PO DAILY PRN (Reason: Constipation) Qty: 14 0RF ibuprofen 400 mg Tablet 400 mg PO Q4HR Qty: 60 0RF losartan-hydrochlorothiazide 100-25 mg Tablet 1 tab PO BEDTIME acetaminophen 325 mg tablet 650 mg PO DAILY PRN (Reason: Pain) aspirin 81 mg tablet,delayed release (DR/EC) 162 mg PO DAILY losartan 100 mg tablet 100 mg PO DAILY Follow up/Referrals: Mikey Fonseca MD [Primary Care Provider] - Nayla Mendoza MD [Physician] - As previously scheduled (Follow up w/ Dr Mendoza on 05/02/2022 @ 10:30 am at [facility] in [place].) Diet/Activity/Treatments Diet: Diet as Tolerated Activity: Weight bearing as tolerated to right leg. Anterior hip precautions. Cold/Heat Therapy: Ice to hip as needed for pain. Skin/Wound/Dressing Care Report to your healthcare provider any signs of infection, such as:: chills, fever, night sweats, unusual drainage and unusual redness Dressing: May shower. Leave Aquacel dressing in place until follow up appointment. Discharge Data Primary Care Provider: Mikey Fonseca Attending Provider: Nayla Mendoza VTE Deep Vein Thrombosis/Pulmonary Embolism Present on Admission: No
[2022-04-20 08:00] VITALS: BP 129/81; PULSE 70; RESP 20; TEMP 36.3; O2SAT 98
[2022-04-20 08:46] LABS: Hematocrit 36.7 % (41-53); Hemoglobin 12.7 g/dL (13.5-17.5)
--- NOTE | 2022-04-20 08:51 | P.DS_ITS ---
History of Present Illness History of Present Illness Date Patient Seen: 04/20/22 Time Patient Seen: 08:52 Chief complaint: OPB Narrative: Operative Date/Time/Diagnoses Date of procedure: 04/19/22 Time of procedure: 08:00 Pre-op diagnosis: right hip OA Post-op diagnosis: same Procedure & Clinicians Procedure: Right total hip arthroplasty anterior approach Same procedure as scheduled: Yes Indications: The patient has had progressively worsening left hip pain with radiographic changes consistent with arthritis. Non-operative management has failed and the patient has requested total hip replacement. The risks, benefits and alternatives to surgery were discussed with the patient prior to proceeding. Risks discussed included, but were not limited to, failure to relieve pain, leg length discrepancy, dislocation, stiffness, infection, nerve damage, deep venous thrombosis, pulmonary embolism, stroke, coma, heart attack, permanent paralysis and , as well as the potential need for eventual revision of the prosthetic . Surgeon: Nayla Mendoza Deflector Operator: Yohana Burns Anesthesia Type: General and Spinal Operative Notes Findings: Severe right hip osteoarthritis, good stability, adequate Closure Type: primary Specimen(s): none sent Prosthetic devices, grafts, tissues, transplants, or devices: Size 56 R3 cup, Mendoza and nephew size 8 high offset anthology, +0 Oxinium head, two 6.5 mm screws Estimated Blood Loss (mL): 250 Blood products transfused: none Discharge Providers Provider Discharge Date: 04/20/22 Primary care physician: Mikey Fonseca MD Consults: 04/09/22 10:34 Consult to Anesthesiology Routine Comment: Consulting Provider: Anesthesiologist Reason for consultation: [facility]/surgeon office requesting re: 1st degree AV block, hx CABG 04/19/22 06:00 Consult to Anesthesiology Routine Comment: Consulting Provider: Anesthesiologist Reason for consultation: Regional block for post operative pain control 04/19/22 11:22 Consult to Discharge Planning Routine Comment: Consult to Physical Therapy Evaluate & Treat Comment: Physician Instructions: post op PATY protocol Consult to Respiratory Therapy Evaluate & Treat Comment: Physician Instructions: Evaluate and treat Discharge provider: Kerry Pratt PA-C Summary Hospital Course Discharge Diagnosis: s/p RIGHT total hip arthroplasty Hospital Course: Mr Christina's hospital course was remarkable for postoperative urinary retention for which he required in-and-out catheterization. Following this, he was able to void without difficulty. He denied N/V. He was evaluated by PT during his stay and felt he was safe for discharge home with his son. His pain was well- controlled with oral medication. Exam Vital Signs (past 8 hours): - 04/20/22 04:00 04/20/22 08:00 Temperature 97.4 F L 97.3 F L Pulse Rate 58 L 70 Respiratory Rate 16 20 Blood Pressure 128/74 129/81 Pulse Oximetry 95 98 Oxygen Flow Rate 0 0 Oxygen Delivery Method Room Air Oxygen Flow Rate 0 Narrative Exam Narrative: 4/5 strength in hip flexors, quadriceps, hamstrings; 5/5 DF, PF, EHL on right. Sensation to touch intact in RLE. Calves soft, compressible, nontender. Aquacel dressing CDI. Objective Labs Result Diagrams: 04/20/22 07:42 Labs: Laboratory Results - last 24 hr 04/20/22 07:42 Hgb 12.7 L Hct 36.7 L PFSH Medical History Asthma Borderline diabetes Depression Glaucoma HLD (hyperlipidemia) HTN (hypertension) Hx of angiography (~2002) Impaired hearing Peripheral neuropathy Skin cancer Surgical History (Updated 04/09/22 @ 10:23 by Chelsea Esqueda RN) History of arthroplasty of left knee (04/05/21) History of arthroplasty of right knee (01/23/11) History of arthroscopy of both knees History of colonoscopy History of ear surgery (~01/2022) History of surgery History of surgery History of surgery History of total left hip arthroplasty (08/01/20) Hx of bilateral cataract extraction Hx of hemorrhoidectomy S/P CABG x 4 (~2002) Social History household members: children Smoking Status: Former smoker alcohol intake: current Discharge Assessment & Plan Assessment and Plan Assessment: s/p RIGHT total hip arthroplasty, anterior approach Plan of Treatment: D/c home, ASA 81 mg BID for VTE prophylaxis, outpt PT. Discharge Plan Discharge Plan Patient Disposition: Home Discharge orders & Medications Discharge Orders: Discharge (Order); Ordered 04/20/22 Ordered By: Kerry Pratt Prescriptions: New oxycodone 5 mg Tablet 5 mg PO Q3HR PRN (Reason: Pain, Moderate (4-6)) Qty: 1 0RF aspirin 81 mg Tablet,Delayed Release (Dr/Ec) 81 mg PO BID Qty: 1 0RF Rx Instructions: TWICE A DAY FOR 6 WEEKS TOTAL acetaminophen 325 mg Tablet 650 mg PO Q6HR Qty: 1 0RF ibuprofen 400 mg Tablet 400 mg PO Q6HR Qty: 1 0RF Continued travoprost 0.004 % Drops 1 drp EYE-BOTH BEDTIME Qty: 0 niacin 100 mg Tablet 500 mg PO DAILY Qty: 0 coenzyme Q10 [CoQ-10] 100 mg Capsule 100 mg PO DAILY Qty: 0 omega 6-gtb-zda-fish oil [Fish Oil] 1,200 (144-216) mg Capsule 2 cap PO DAILY Qty: 0 albuterol sulfate 90 mcg/actuation Hfa Aerosol Inhaler 2 puff INHALATION Q4-6H PRN (Reason: Shortness Of Breath) Qty: 0 multivitamin Capsule 1 cap PO Q OTHER DAY Qty: 0 Praluent Pen 75 mg/mL pen injector 75 mg SUBCUT Q2W docusate sodium [DOK] 100 mg Capsule 100 mg PO BID Qty: 60 0RF polyethylene glycol 3350 17 gram Powder In Packet 17 g PO DAILY PRN (Reason: Constipation) Qty: 14 0RF ibuprofen 400 mg Tablet 400 mg PO Q4HR Qty: 60 0RF losartan-hydrochlorothiazide 100-25 mg Tablet 1 tab PO BEDTIME acetaminophen 325 mg tablet 650 mg PO DAILY PRN (Reason: Pain) aspirin 81 mg tablet,delayed release (DR/EC) 162 mg PO DAILY losartan 100 mg tablet 100 mg PO DAILY Follow up/Referrals: Mikey Fonseca MD [Primary Care Provider] - Nayla Mendoza MD [Physician] - As previously scheduled (Follow up w/ Dr Mendoza on 05/02/2022 @ 10:30 am at [facility].) Diet/Activity/Treatments Diet: Diet as Tolerated Activity: Weight bearing as tolerated to right leg. Anterior hip precautions. Cold/Heat Therapy: Ice to hip as needed for pain. Skin/Wound/Dressing Care Report to your healthcare provider any signs of infection, such as:: chills, fever, night sweats, unusual drainage and unusual redness Dressing: May shower. Leave Aquacel dressing in place until follow up appointment. Visit Report/Discharge Packet Instructions: DI for Hip Replacement Stand Alone Forms: Surgery Discharge Discharge Data Primary Care Provider: Mikey Fonseca Attending Provider: Nayla Mendoza VTE Deep Vein Thrombosis/Pulmonary Embolism Present on Admission: No
[2022-04-20] MEDS: FISH OIL 1,000 MG CAPSULE 2000 MG PO (09:15)
[2022-04-20] MEDS: NIACIN 500 MG TAB ER PO (09:20)
[2022-04-20] MEDS: DOCUSATE 100 MG CAPSULE PO (09:21)
[2022-04-20] MEDS: TAMSULOSIN 0.4 MG CAPSULE PO (09:22)
[2022-04-20] MEDS: ASPIRIN EC 81 MG TABLET PO (09:23)
[2022-04-20] MEDS: OXYCODONE IR 10 MG TABLET PO ×2 (09:23→12:39)
[2022-04-20] MEDS: MULTIVITAMIN 1 TABLET 1 TAB PO (09:25)
--- NOTE | 2022-04-20 09:39 | CM.DANOTE ---
Patient is a 77 yo male who was admitted on 04/19/22 for RTHA. Pt has MCR and [employer] OUT [employer] REG for insurance and his PCP is Mikey Fonseca. EMR was reviewed. Per Ortho, pt with hx of left total hip and knee replacement and tolerated Right hip well and medically stable to d/c home today following final PT. Per PT, recommending home with assist and outpt PT. 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 Per RN, pt was having some urinary retention and will make sure he can void independently prior to d/c. Pt confirms he lives on [place] with his adult son who can assist, son has autism but higher functioning, and friend does plan to provide [place] and to home on [place]. Pt has outpt PT already set up and does not anticipate any needs at d/c and is hopeful for priority boarding pass for the [address] back to [place]. 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 Plan: Patient to d/c home today via friend POV for the [address] back to [place] and outpt PT set up. 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 Yes Advance Directives on File No History Provided By Patient,Medical Record Has Patient been admitted in last 30 No days? Prior Living Arrangements House Household Members children Type of transporation used prior to Drives own vehicle admit Independent with ADL's Yes Is patient alert and oriented? Yes Caregiver for Another No: lives with adult son with autism Community Services used prior to Physical Therapy admission: DME Already Rented / Owned FWW / Walker Patient/Family Preference OP PT Therapy Barriers to Discharge No Discharge Plan Home Community Services Physical Therapy Transportation Arrangement Friend Referrals Initiated None needed Whiteboard Updated in Patient Room with Yes name and ext. # of Hollow Handle Bench Worker Review Status In Process Please Provide Date Initial DC 04/20/22 Assessment Was Performed Next Review Type Continued Stay Review Pre-Anesthesia Assessment Start: 04/09/22 09:35 Freq: Status: Complete Protocol: Document 04/09/22 09:35 CAB (Rec: 04/09/22 10:26 CAB [id number]) Pre-Anesthesia Assessment Preferred Name [facility] Patient Information Reviewed Via Phone Assessment Assessment Completed With Patient Diagnostic Results BMP/CMP,CBC,EKG,Urinalysis Comment Outside labs/ECG scanned, COVID screen @ 04/18/22 Primary Care Provider Mikey Fonseca Seen Specialist in Last 12 Months Yes Specialist Seen Linking Machine Operator,Orthopedist Primary Language Greek Preferred Language Greek Commercial Loan Collection Officer Required No Height 167.64 cm Weight 74.843 kg Body Mass Index (BMI) 26.6 Hearing Ability Hard of Hearing Visual Impairment No Limitations Visual Assist None Dentition Type Teeth, Natural Present Barriers to Learning None Hx Anesthesia Reactions Yes: I woke up during my heart surgery and an arm surgery Hx Family Anesthesia Reaction No Hx Malignant Hyperthermia No Hx Blood Transfusions Yes: s/p knee surgery Hx Blood Transfusion Reaction Yes: infection possibly from blood transfusion Anesthesia Review Requested Yes: PA @ Surgeon's office requests re: 1st degree AV block, no cardiology f/u Box Stamper No alcohol intake current alcohol intake frequency a few times a month Smoking Status Former smoker how long ago did patient quit smoking Quit in high school Substance Use Type does not use Pain Present Pain Reported Musculoskeletal Symptoms Abnormal Gait,Back Pain, Difficulty Walking,Joint Pain, Neck Pain,Numbness History of Falling (Recent or History of Yes ) Patient is completely paralyzed or No completely immobile Mental Status Oriented to own ability Is patient on oxygen? No Does patient have CHEN/SOB No Hx Sleep Apnea No CPAP/BIPAP use not prescribed Currently Taking a Beta Cj No Can You Climb a Flight of Stairs Without Yes: Pt active, swims 2x/week SOB Hx Chest Pain No Hx SOB No Hx Syncope or Dizziness No Anti-Coagulant Therapy Yes: Aspirin 162mg-pt is planning to hold x 7 days. Has a Check Totaler No Cardiac Testing No Hx Pacemaker/ICD No Pacemaker Rep Required? No Diet Type At Home Regular dysphagia No Urinary Catheter Present No Hx Urinary Self Catheterization No Diabetes No HgbA1C 5.3 Date 02/16/22 Hx Drug Resistant Organism No Presence of External or Internal Medical Yes: CABG, Right knee, 4 Devices screws in R arm, left knee/hip Have you had any close contact with No someone diagnosed with COVID-19? Received a COVID vaccine? No Marital Status Lives With children Prior Living Arrangements House Number of Floors (Floors) Two Floors Support System Child/Children Does the Patient Have Assistance After Yes: Caregiver for son w/ Surgery Asperger's Patient Discharge Plan Description Return Home Comment Pt advised 1 night length of stay per surgeon Additional comment Lives on [place] Feels Safe in Current Environment Yes Been Physically Hurt or Threatened By a No Person in Current Environment Do you have thoughts of harming yourself None or others? Are you currently considering suicide? No Do you have a plan to hurt yourself or No Plan others? Do You Have Any Spiritual Beliefs That No May Affect Your HC Choices? Do You Have Any Cultural Practices That No May Affect Your HC Choices? Who Can We Speak to About Patient's Care Family, friends Identifying Code for Release of Patient Declines to issue Information Health Care Proxy/Next of Kin Donn (Son) Health Care Proxy Emergency Contact Name Donn (son) Goldy (female friend) Emergency Contact Phone Number Donn: [phone] Goldy: [phone] Advance Directives? Yes Advance Directives on File No Power of Automation Controls Specialist Yes Power of Automation Controls Specialist Name Donn Christina (son) Power of Automation Controls Specialist PAC Instructions Do not shave/clip surgical site,Durable medical equipment ,Medications to take/avoid, Nasal antibiotic,No ETOH/ petroleum product on skin DOS, NPO,Post-op transportation,Pre -surgical wash,Sensory aids, Sturdy shoes/comfortable clothes,Do not bring valuables and remove jewelry
--- NOTE | 2022-04-20 09:41 | PT.IPTN ---
Current Diagnoses Unilateral primary osteoarthritis, right hip (04/19/22) Surgery Performed Operation Date: 04/19/22 07:45 Actual Procedures p Total Hip Arthroplasty/Anterior Approach(Right) - Nayla Mendoza MD Physical Therapy Treatment Note M2 PT-IP Current Condition Start: 04/19/22 16:08 Freq: NEEDED Status: Active Protocol: Document 04/19/22 16:59 AW (Rec: 04/19/22 17:26 AW [id number]) Physical Therapy Current Condition Current Condition Evaluation Date 04/19/22 Treatment Diagnosis s/p R PATY with anterior approach; difficulty in walking Onset Date 04/19/22 M3 PT-IP Subjective Start: 04/19/22 16:08 Freq: NEEDED Status: Active Protocol: Document 04/20/22 09:15 KS (Rec: 04/20/22 12:23 KS [id number]) Subjective Physical Therapy Visit Type Type Treatment Note Visit Start Time 09:15 Visit Stop Time 09:41 Total Visit Minutes 31 Number of LABORER DRYING DEPARTMENT Visits 1 Physical Therapy Visit Comments Patient Comments Pt is willing to participate with PT M4 PT-IP Mobility and Gait Start: 04/19/22 16:08 Freq: NEEDED Status: Active Protocol: Document 04/20/22 09:15 KS (Rec: 04/20/22 12:23 KS [id number]) PT-Bed Mobility Assessment Supine to Sit Supine to Sit Standby Assistance Sit to Supine Sit to Supine Standby Assistance Scooting Scooting to Edge of Bed Standby Assistance Scooting Up and Down in Bed Standby Assistance PT-Transfer Assessment Sit to and From Stand Sit to and from Stand Standby Assistance,1 Person Assistance,Use of Upper Extremities Equipment Transfer Assistive Device Gait Belt,Front Wheeled Walker Orthotic/Prosthetic Devices or Brace: No Transfers Transfer Destination Bed Transfer Technique ambulated with FWW Transfer Ability Level of Assist Standby Assistance,Contact Guard Assistance Comments Mobility Comments Pt in bed upon arrival and willing to ambulate and perform stairs. Pt SBA for bed mobility and ambulated ~100 ft to practice stairs w/ FWW SBA to CGA. Pt w/ good awareness and adherence to hip precautions. Pt ascended/ descended 3 steps w/ L rail and step to pattern SBA and ambulated additional 100 ft back to room w/ FWW SBA. Reveiwed exercises and at home safety - pt feels able and ready to return home. Gait Assessment Gait Gait Assistance Required: Standby Assistance,Contact Guard Assist,1 Person Assist Distance (Feet) 200 Able to Maintain Weight Bearing Status Yes During Gait Assistive Devices Assistive Device Gait Belt,Front Wheeled Walker Orthotic/Prosthetic Devices or Brace: No Gait Deviations General Gait Pattern Antalgic,Decreased Stride Length,Decreased Feet Clearance,Step-to Gait Factors Limiting Gait Function Factors Limiting Gait Function Decreased Sensation,Decreased Strength,Limited Range of Motion Comments Gait Comments See mobility comments for details. Pt was cautious and mindful about his precautions. Stair Climbing Assessment Evaluation Level of Assist On Stairs Standby Assistance,1 Person Assistance Devices Stair Climbing Assistive Devices Left Railing Technique/Endurance Stair Climbing Direction Ascend and Descend Stair Climbing Technique Step to Step Number of Steps Climbed 3 Stair Climbing Set # Repetitions (reps) 1 Comments Stair Climbing Comments Pt ascended/descended 3 steps w/ L rail and step to pattern SBA. Feels safe to complete at home. PT-Balance Assessment Sitting Balance and Reactions Static Sitting Balance Ability Normal Dynamic Sitting Balance Ability Normal Standing Balance and Reactions Static Standing Balance Ability Good Dynamic Standing Balance Ability Good Device Used FWW M5 PT-IP Objective Assessments Start: 04/19/22 16:08 Freq: NEEDED Status: Active Protocol: Document 04/19/22 16:59 AW (Rec: 04/19/22 17:26 AW [id number]) Orientation Orientation/Cognition Level of Alertness Alert Orientation Name,Day of Week,Place, Situation Language Function Ability No Deficits Noted Safety Awareness Understands Safety Issues Memory Description No Deficits Noted Gross Range of Motion Lower Extremity ROM Assessment Right Impaired Strength Lower Extremity Strength Assessment Right Impaired Hip NT Knee 4/5 Ankle 4+/5 Comments Strength Comments LLE grossly 4+/5 Sensation Assessment Sensation Gross Sensation Right UE Impaired,Left UE Impaired,Right LE Impaired, Left LE Impaired Light Touch Impaired Proprioception (Position) Impaired Sensation Description Numbness,Tingling,[place],Burning Comments Sensation Comments 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 Hands are also affected. M6 PT-IP Treatment Start: 04/19/22 16:08 Freq: NEEDED Status: Active Protocol: Document 04/20/22 09:15 KS (Rec: 04/20/22 12:23 KS [id number]) Physical Therapy Treatment Exercises Exercises Ankle Pumps,Gluteal Sets,Quad Sets,Heel Slides Education Education Provided Precautions,Weight Bearing Status,Post-Op Packet,Safety M7 PT-IP Assessment and Plan Start: 04/19/22 16:08 Freq: NEEDED Status: Active Protocol: Document 04/20/22 09:15 KS (Rec: 04/20/22 12:23 KS [id number]) PT Summary Assessment and Plan Potential Rehabilitation Potential Excellent Summary Impairments Pain,ROM,Strength,Balance, Sensation,Bed Mobility, Transfers,Gait Progress Towards Goals Progressing Toward Goals Assessment Summary Pt progressing well w/ PT, able to ambulate 200 ft and ascend/descend 3 steps SBA. Able to adhere to hip precautions and use FWW appropriately. Pt feels safe to return home w/ son and will benefit from OPPT to improve strength and stability. Goals Bed Mobility Goal Independent Transfer Goal Independent,Front Wheeled Walker Gait Goal Independent,Front Wheel Walker Gait Distance 200 Other Goals - up/down 3 steps with unilateral rail SBA Days to Meet Goals 2 Frequency of Treatment Frequency Of Treatment Twice a Day Treatment Plan Physical Therapy Treatment Plan Bed Mobility Training,Transfer Training,Gait Training, Therapeutic Exercise,Balance Retraining,Post Op Education, Discharge Planning,Hot or Cold Pack,Neuromuscular Re-ed Other Recommendations and Next Treatment progress gait; review ther ex; Focus stairs Precautions Anterior Hip Precautions No Hip Extension,No Hip External Rotation Weight Bearing Status Weight Bearing Status Weight Bear as Tolerated Recommendations To Nursing Amount of Assist Needed 1 Person Assist Discharge Recommendations PT Discharge Recommendations Home with Assistance, Outpatient PT Transportation Needs at Discharge Private Vehicle
--- NOTE | 2022-04-20 13:36 | PC.NURSE ---
Day shift Pt discharged with friend, with all Pt belongings, all paperwork reviewed and all questions answered. Priority boarding pass given. Pt has f/u with provider. Left unit via wheel chair at approx 1320
== END 2022-04-20 13:39 | disposition home or self-care (01) ==
LOC: OR 06:20 → AC 06:22
PROVIDERS: Family Provider Family Medicine Geriatric Medicine; PCP Family Medicine; Referring Provider Orthopaedic Surgery; Visit Provider Orthopaedic Surgery
PROC: (CPT 27130; principal; 2022-04-19 07:45)
DX: M16.11 Unilateral primary osteoarthritis, right hip (principal); I10 Essential (primary) hypertension; E78.5 Hyperlipidemia, unspecified; I35.1 Nonrheumatic aortic (valve) insufficiency; J45.909 Unspecified asthma, uncomplicated; I25.10 Atherosclerotic heart disease of native coronary artery without angina pectoris; H40.9 Unspecified glaucoma; G62.9 Polyneuropathy, unspecified; F32.A Depression, unspecified; Z96.642 Presence of left artificial hip joint; Z96.653 Presence of artificial knee joint, bilateral; Z95.1 Presence of aortocoronary bypass graft; Z85.828 Personal history of other malignant neoplasm of skin
CPT/HCPCS: 27130; 36415; 73502; 76000; 85014; 85018; 97116; 97161; 97530; C1776; A9270; C9290; J0171; J0461; J0690; J1100; J2250; J2405; J2704; J3010

== ENCOUNTER → 2024-03-13 09:11 | Outpatient (CLI) | payer MEDICARE, BC, SELFPAY ==
[2022-04-19 14:39] VITALS: BMI 29.3
== END ==
PROVIDERS: Family Provider Family Medicine Geriatric Medicine; PCP Family Medicine; Referring Provider Family Medicine; Visit Provider Physician Assistant
DX: L89.893 Pressure ulcer of other site, stage 3 (principal); L84 Corns and callosities; L53.9 Erythematous condition, unspecified; R60.0 Localized edema; L08.89 Other specified local infections of the skin and subcutaneous tissue; Z79.2 Long term (current) use of antibiotics; I10 Essential (primary) hypertension; E78.5 Hyperlipidemia, unspecified
CPT/HCPCS: 11042; 87070; 87075; 87077; 87147; 87205; 99204; 99214

== ENCOUNTER → 2024-03-13 11:34 | Outpatient (CLI) | payer MEDICARE, BC, SELFPAY ==
[2022-04-19 14:39] VITALS: BMI 29.3
--- NOTE | 2024-03-13 11:36 | DI.RAD.S_ITS ---
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 COMPARISON: None. FINDINGS: Bones: No fractures or dislocations. Mild deformity of the 5th metatarsal from healed midshaft fracture. There are moderately advanced arthritic changes in the 1st MP joint with joint space narrowing and sclerosis. No suspicious bony lesions. Soft tissues: No tibiotalar joint effusion. Achilles tendon appears normal. No subcutaneous emphysema or radiopaque foreign body is demonstrated. IMPRESSION: No acute bony abnormality. Arthritic changes in the 1st MP joint. Old healed right 5th metatarsal fracture. Dictated by: Yasmani Ram M.D. on 03/13/2024 at 12:08 Approved by: Yasmani Ram M.D. on 03/13/2024 at 12:15
== END ==
PROVIDERS: Family Provider Family Medicine Geriatric Medicine; PCP Family Medicine; Referring Provider Physician Assistant; Visit Provider Physician Assistant
DX: L97.519 Non-pressure chronic ulcer of other part of right foot with unspecified severity (principal); S92.351S Displaced fracture of fifth metatarsal bone, right foot, sequela; L89.893 Pressure ulcer of other site, stage 3; L84 Corns and callosities; L53.9 Erythematous condition, unspecified; R60.0 Localized edema; L08.89 Other specified local infections of the skin and subcutaneous tissue; Z79.2 Long term (current) use of antibiotics; I10 Essential (primary) hypertension; E78.5 Hyperlipidemia, unspecified
CPT/HCPCS: 11042; 73630; 87070; 87077; 87147; 87205; 99214

== ENCOUNTER → 2024-03-20 09:15 | Outpatient (CLI) | payer MEDICARE, BC, SELFPAY ==
[2022-04-19 14:39] VITALS: BMI 29.3
[2024-03-20 10:05] LABS: Hemoglobin A1C% w Est Avg Glu 5.5 % (4.0-6.0)
== END ==
PROVIDERS: Family Provider Family Medicine Geriatric Medicine; PCP Family Medicine; Referring Provider Physician Assistant; Visit Provider Physician Assistant
DX: L97.519 Non-pressure chronic ulcer of other part of right foot with unspecified severity (principal); L89.893 Pressure ulcer of other site, stage 3; L84 Corns and callosities; R60.0 Localized edema; L53.9 Erythematous condition, unspecified; I10 Essential (primary) hypertension; E78.5 Hyperlipidemia, unspecified; Z79.82 Long term (current) use of aspirin
CPT/HCPCS: 11042; 36415; 83036

== ENCOUNTER → 2024-03-20 10:17 | Outpatient (CLI) | payer MEDICARE, BC, SELFPAY ==
[2022-04-19 14:39] VITALS: BMI 29.3
== END ==
PROVIDERS: Family Provider Family Medicine Geriatric Medicine; PCP Family Medicine; Referring Provider Family Medicine; Visit Provider Physician Assistant
DX: L89.893 Pressure ulcer of other site, stage 3 (principal); L84 Corns and callosities; R60.0 Localized edema; L53.9 Erythematous condition, unspecified; I10 Essential (primary) hypertension; E78.5 Hyperlipidemia, unspecified; Z79.82 Long term (current) use of aspirin
CPT/HCPCS: 11042; 99213

== ENCOUNTER → 2024-03-27 09:33 | Outpatient (CLI) | payer MEDICARE, BC, SELFPAY ==
[2022-04-19 14:39] VITALS: BMI 29.3
== END ==
LOC: WC 09:34
PROVIDERS: Family Provider Family Medicine Geriatric Medicine; PCP Family Medicine; Referring Provider Family Medicine; Visit Provider Physician Assistant
DX: Z09 Encounter for follow-up examination after completed treatment for conditions other than malignant neoplasm (principal); Z87.2 Personal history of diseases of the skin and subcutaneous tissue; L89.893 Pressure ulcer of other site, stage 3
CPT/HCPCS: 99212; 99213